=== PATIENT | male | born 1950 | race Two or more races ===

== ENCOUNTER → 2024-06-01 | Outpatient (CLI) | payer MEDICARE, MEDICAID, SELFPAY ==
[2024-06-01 10:21] LABS: Prostate Specific Antigen < 0.10 ng/mL (0-4.00)
== END | disposition home or self-care (01) ==
PROVIDERS: PCP Family Medicine; Referring Provider Urology; Visit Provider Urology
DX: C61 Malignant neoplasm of prostate (principal)
CPT/HCPCS: 36415; 84153

== ENCOUNTER → 2024-06-05 | Outpatient (BNVA) | payer MEDICARE, MEDICAID, SELFPAY | END | disposition home or self-care (01) | PROVIDERS: PCP Family Medicine; Referring Provider Family Medicine; Visit Provider Urology | DX: C61 Malignant neoplasm of prostate (principal); N32.81 Overactive bladder; Z92.3 Personal history of irradiation; E11.9 Type 2 diabetes mellitus without complications; I10 Essential (primary) hypertension; E78.00 Pure hypercholesterolemia, unspecified | CPT/HCPCS: 81003; 99212; G0463 ==

== ENCOUNTER → 2024-07-10 | Outpatient (CLI) | payer MEDICARE, MEDICAID, SELFPAY ==
[2024-07-10 10:13] LABS: Basophils % (Auto) 1 % (0-2.5); Eosinophils # (Auto) 0.3 Thou/mm3 (0.0-0.5); Eosinophils % (Auto) 4 % (0-10); Hematocrit 40.2 % (41.0-53.0); Hemoglobin 13.6 g/dL (13.5-16.0); Immature Granulocytes % (Auto) 0 % (0-0); Immature Granulocytes Auto 0.02 Thou/mm3 (0.00-0.00); Lymphocytes # (Auto) 1.6 Thou/mm3 (1.0-4.8); Lymphocytes % (Auto) 21 % (10-50); Mean Corpuscular HGB Conc 33.8 g/dl (31.0-37.0); Mean Corpuscular Hemoglobin 28.9 pg (25.0-35.0); Mean Corpuscular Volume 85 fL (80-100); Monocytes # (Auto) 0.5 Thou/mm3 (0.0-0.8); Monocytes % (Auto) 7 % (0-12); Neutrophils % (Auto) 68 % (37-80); Nucleated Red Blood Cell % 0 /100 WBC (0); Platelet Count 347 Thou/mm3 (140-440); RDW Standard Deviation 37.9 fL (35.1-43.9); Red Blood Count 4.71 Miln/mm3 (4.50-5.90); White Blood Count 7.4 Thou/mm3 (3.8-10.6)
[2024-07-10 10:24] LABS: Prostate Specific Antigen < 0.10 ng/mL (0-4.00)
[2024-07-10 10:40] LABS: Alanine Aminotransferase 13 U/L (10-49); Albumin, Serum 4.4 gm/dL (3.4-4.8); Albumin/Globulin Ratio 1.6 (1.2-2.2); Alkaline Phosphatase 163 U/L (46-116); Anion Gap 6 (7-16); Aspartate Amino Transferase < 8 U/L (0-34); BUN/Creatinine Ratio 16 Ratio (12-20); Bilirubin,Total 0.5 mg/dL (0.3-1.2); Blood Urea Nitrogen 13 mg/dL (9-23); Calcium 9.3 mg/dL (8.3-10.6); Calcium (Corrected) 9.3 mg/dL (8.5-10.1); Chloride 98 mMol/L (98-107); Creatinine (Component) 0.8 mg/dL (0.6-1.3); Globulin 2.7 gm/dL (2.3-3.5); Glucose 353 mg/dL (74-106); Osmolality,Calculated 282 (275-295); Potassium 4.3 mMol/L (3.4-5.1); Sodium 134 mMol/L (136-145); Total Protein 7.1 gm/dL (5.7-8.2); eGFR > 60 See Note
== END | disposition home or self-care (01) ==
LOC: SCTO 08:45
PROVIDERS: PCP Family Medicine; Referring Provider Internal Medicine Hematology & Oncology; Visit Provider Internal Medicine Hematology & Oncology
DX: C61 Malignant neoplasm of prostate (principal)
CPT/HCPCS: 36415; 80053; 84153; 85025

== ENCOUNTER 2024-07-12 15:24 | Outpatient (RCR) | payer MEDICARE, MEDICAID, SELFPAY ==
--- NOTE | 2024-07-22 22:50 | CTCFLWUP_ITS ---
Patient: CHETAN VAUGHN V. : 1950 Page 4 of 5 FOLLOW UP NOTE DATE OF SERVICE: 07/12/2024 NAME: CHETAN VAUGHN V. ACCOUNT: [id number] : 1950 AGE: 73 INTERVAL HISTORY: Patient is complaining that he feels sexual dysfunction and would like to stop his Lupron. Patient otherwise is very active. Patient takes his calcium and vitamin D. 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 Mr. Vaughn was treated with robotic radical prostatectomy. 1. Adenocarcinoma of the prostate gland, acinar type. 2. Histological grade group and [place] score grade group is 4. Bhupendra score is 4+4=8. Percentage of the pattern 4 is 80%. Percentage of the pattern 5 is 0. Intraductal carcinoma, not identified. 3. Tumor quantification 25%. 4. Extraprostatic extension present, nonfocal. 5. Location of the extraprostatic extension, right anterior, left lateral, left posterior. 6. Urinary bladder neck invasion present. 7. Seminal vesicle invasion present, left. 8. Treatment effect, no known presurgical therapy. 9. Prostate summary, lymphovascular invasion present. 10. Perineural invasion present. 11. Margin involved by invasive carcinoma limited less than 3 mm. Location of positive margin, right posterior margin. Positivity in the area of extraprostatic extension present, Bhupendra pattern of positive margin is 4 lymph nodes. Number of lymph nodes involved 2. Site pelvic, periprostatic. Size of the metastatic deposit is 0.4 cm. Pathological stage is pT3b N1 Mx. Additional finding, carcinoma involves the left vas. I did his PSA on 05/30/2020, is 12.35. He is continent of urine. 07/24/2020: Bone scan done 07/16/2020 - 09/10/2020: Due to high risk nature of his prostate cancer Mr. Vaughn was treated with radi ation along with Lupron injections. Mr. Vaughn received 6840 cGy of radiation therapy prostate bed. 08/04/2020?02/03/2022: Mr. Vaughn was treated with leuprolide. PSA trend: 06/2021: Less than 0.10. 03/11/2021: Less than 0.10. 08/12/2022: Less than 0.10. 02/21/2023: 4.69. 03/14/2023: PSA 6.14. 03/10/2023: Xtandi prescribed 03/17/2023: Patient received Lupron 22.5 mg IM 05/17/2023: 3.45. 03/01/2023: CT scan of the abdomen and pelvis with IV contrast 03/03/2023:Bone scan- 03/07/2023: X-rays of the lumbar spine no evidence of metastatic disease 03/07/2023: X-rays of the thoracic spine were negative for osteoblastic metastatic disease. 06/14/2023: PSA less than 0.10 07/11/2023: Xtandi discontinued due to extreme weakness and fatigue. 08/17/2023: PSA less than 0.00. 09/13/2023: PSA less than 0.10. 12/12/2023: PSA is less than 0.10. OTHER MEDICAL HISTORY/CONDITIONS: Prostate cancer HTN Diabetes Asthma Rheumatoid arthritis Hyperlipidemia Robotic Radiacl Prostatectomy - 07/31/2019 [facility] [[email or web address] Lumbar rodding - 2016 FAMILY HISTORY: Patient?denies?family?cancer?history. 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 Tobacco?Use:?Denies ETOH?Use:?Denies Drug?Note:?Denies Social?History?Note:?Lives?with?dtr MEDICATIONS: 1. losartan - 100 mg Daily 2. metformin - 1,000 mg Twice a Day 3. NovoLOG Mix 70-30 U-100 Insuln - 100 unit/mL (70-30) As directed Medications Last Reconciled by Bri Osborn MA on 07/12/2024 ALLERGIES: PENICILLAMINE REVIEW OF SYSTEMS: A complete 14-point review of systems was performed and is negative except as noted in interval histo ry. PHYSICAL EXAMINATION: VITAL SIGNS: PAIN: 0 - No pain ECOG Performance Status: 0 - Asymptomatic and fully active GENERAL APPEARANCE: Appears well, in no apparent distress, appropriately interactive. HEENT: Normocephalic, no temporal wasting, normal conjunctiva, no scleral icterus, normal hearing, li ps without lesions, neck normal range of motion. CARDIOVASCULAR: Not assessed. PULMONARY: Normal respiratory effort, no respiratory distress or use of accessory muscles, speaking i n full sentences, no tachypnea. EXTREMITIES: No pedal edema or cyanosis. SKIN: Normal skin appearance. NEUROLOGIC: Alert and oriented x4. PSHYCHIATRIC: Appropriate affect, mood normal, behavior normal, intact thought and speech. LABORATORY DATA: I have personally reviewed and interpreted each of the patient?s relevant lab tests, abnormal finding s are below: Date 07/10/24 ??WHITE?BLOOD?COUNT?(Thou/mm3) 7.4 ??RED?BLOOD?COUNT?(Miln/mm3) 4.71 ??HEMOGLOBIN?(gm/dl) 13.6 ??HEMATOCRIT?(%) 40.2?L ??PLATELET?COUNT?(Thou/mm3) 347 ??NEUTROPHILS?%,?AUTO?(%) 68 ??LYMPH?%,?AUTO?(%) 21 ??NEUTROPHILS,?AUTO?(Thou/mm3) 5.0 ASSESSMENT/PLAN: 1. 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 The patient denies any new complaints. Has reasonably good energy levels. Ambulating with the he lp of a cane. 3. Previously he was unable to tolerate Xtandi which was discontinued. 4. PSA less than 0.10. 5. CT scan of the abdomen and pelvis with IV contrast negative for metastatic disease. 6. Bone scan (03/03/2023) is also negative for metastatic disease.. 7. Rheumatoid arthritis ORDERS: Stop Lupron CBC CMP PSA every 3 to 4 months RETURN TO CLINIC: RTC in 3 to 4 months BILLING AND COMPLIANCE: I reviewed external records from providers outside my specialty as summarized above. I spent a total of 50 minutes on this patient?s care on the day of their visit excluding time spent related to any bi lled procedures. This time includes time spent with the patient as well as time spent documenting in the medical record, reviewing patients records and tests, obtaining history, placing orders, communi cating with other healthcare professionals, counseling the patient, family or caregiver, and/or care coordination for the diagnoses above. Electronically Signed by: Edison Reyez MD T: 10:48 PM CC: PCP: Kevin Robison Referring: Kevin Robison This document was completed utilizing speech recognition software. Grammatical errors, random word in sertions, pronoun errors, and incomplete sentences are an occasional consequence of this system due t o software limitations, ambient noise, and hardware issues. Any formal questions or concerns about th e content, text or information contained within the body of this dictation should be directly address ed to the provider for clarification.
== END 2024-07-24 23:59 | disposition home or self-care (01) ==
LOC: SCTC 15:24
PROVIDERS: PCP Family Medicine; Referring Provider Family Medicine; Visit Provider Internal Medicine Hematology & Oncology
DX: C61 Malignant neoplasm of prostate (principal); M06.9 Rheumatoid arthritis, unspecified
CPT/HCPCS: 99212; G0463

== ENCOUNTER 2024-09-26 15:41 | Emergency (ER) | payer MEDICARE, MEDICAID, SELFPAY ==
[2024-09-26 16:28] VITALS: BP 134/76; PULSE 89; RESP 18; TEMP 36.6; O2SAT 97; BMI 22.0
--- NOTE | 2024-09-26 16:28 | XR_ITS ---
Examination: CT brain head without contrast. 2-D sagittal coronal reconstructions Date and time of exam:September 26, 2024 1818 hours Comparison August 21, 2023 INDICATIONS: Onset dizziness today CTDI: vol (mGy):46.2 DLP: (mGycm):915 Technique: Multiple CT axial sections of the brain have been obtained, 5 mm slice thickness. Contrast has not been administered. 2-D sagittal, coronal reconstructions have been obtained Low dose protocols were performed. One or more of the following dose reduction techniques were used; automated exposure control, adjustment of the mA and/or KV according to patient size, use of iterative reconstruction technique. Findings: No significant ventricular enlargement. Intra-axial or extra-axial hemorrhage density is not seen. No mass effect or midline shift Basal cisterns are not remarkable. Fourth ventricle is midline. Cranial vault intact. Impression: Negative for acute hemorrhage, mass effect or midline shift Significant bilateral chronic mastoiditis Bilateral acute mastoiditis Acute right maxillary sinusitis Significant chronic ethmoid sinusitis Advise clinical correlation and follow-up accordingly
--- NOTE | 2024-09-26 16:28 | EKG_ITS ---
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
--- NOTE | 2024-09-26 16:29 | PD.EDRME ---
Rapid Medical Screening Exam RME Arrival date/time: 09/26/24 15:41 74-year-old male with a history of hypertension, type 2 diabetes, hyperlipidemia presents to the emergency room with a chief complaint of facial twitching, dizziness, lightheadedness and a blood sugar reading of 570 at home. Patient states the facial twitching began today and it is involuntary. I have greeted and performed a focused initial assessment of this patient. A comprehensive ED assessment and evaluation of the patient, analysis of all test results, and completion of the medical decision making process will be conducted by additional ED providers. Chief Complaint: Recheck/Abnormal Lab/Rx Time Seen by Provider: 09/26/24 16:21 Vital signs reviewed by provider: Yes
[2024-09-26 17:27] LABS: Collection Type, Urine Clean Catch; WBC,Urine 0 /hpf (0-5)
[2024-09-26 17:31] LABS: Basophils % (Auto) 0 % (0-2.5); Eosinophils # (Auto) 0.3 Thou/mm3 (0.0-0.5); Eosinophils % (Auto) 3 % (0-10); Hematocrit 39.3 % (41.0-53.0); Hemoglobin 13.3 g/dL (13.5-16.0); Immature Granulocytes % (Auto) 0 % (0-0); Immature Granulocytes Auto 0.03 Thou/mm3 (0.00-0.00); Lymphocytes # (Auto) 1.7 Thou/mm3 (1.0-4.8); Lymphocytes % (Auto) 15 % (10-50); Mean Corpuscular HGB Conc 33.8 g/dl (31.0-37.0); Mean Corpuscular Hemoglobin 28.9 pg (25.0-35.0); Mean Corpuscular Volume 85 fL (80-100); Monocytes # (Auto) 0.7 Thou/mm3 (0.0-0.8); Monocytes % (Auto) 6 % (0-12); Neutrophils # (Auto) 8.7 Thou/mm3 (1.8-7.7); Neutrophils % (Auto) 76 % (37-80); Nucleated Red Blood Cell % 0 /100 WBC (0); Platelet Count 347 Thou/mm3 (140-440); RDW Standard Deviation 37.4 fL (35.1-43.9); Red Blood Count 4.61 Miln/mm3 (4.50-5.90); White Blood Count 11.5 Thou/mm3 (3.8-10.6)
[2024-09-26 17:33] LABS: Beta Hydroxybutyrate 0.2 mmol/L (<0.6)
[2024-09-26 17:43] LABS: Bilirubin,Urine Negative (Negative); Blood,Urine Negative (Negative); Clarity,Urine Clear (Clear/Hazy); Color,Urine Lt-Yellow (Lt Yel-Yel); Glucose, Urine 4+ (Negative); Ketones,Urine Negative (Negative); Leukocyte Esterase,Urine Negative (Negative); Nitrite,Urine Negative (Negative); PH,Urine 6.5 (5.0-7.0); Protein,Urine Negative (Neg - Trace); RBC,Urine 6 /hpf (0-3); Squamous Epithelial Cell,Urine < 1 /hpf (0-5); Urobilinogen,Urine Negative mg/dL (0.0-1.0)
[2024-09-26 18:03] LABS: B-Type Natriuretic Peptide 27 pg/mL (0-100)
[2024-09-26 18:20] LABS: Alanine Aminotransferase 14 U/L (10-49); Albumin, Serum 4.1 gm/dL (3.4-4.8); Albumin/Globulin Ratio 1.3 (1.2-2.2); Alkaline Phosphatase 181 U/L (46-116); Anion Gap 8 (7-16); Aspartate Amino Transferase 16 U/L (0-34); BUN/Creatinine Ratio 17 Ratio (12-20); Bilirubin,Total 0.3 mg/dL (0.3-1.2); Blood Urea Nitrogen 17 mg/dL (9-23); Calcium 9.5 mg/dL (8.3-10.6); Calcium (Corrected) 9.5 mg/dL (8.5-10.1); Carbon Dioxide 28.7 mMol/L (20.0-31.0); Chloride 98 mMol/L (98-107); Estimated Creatinine Clearance 60.3 mL/min (>60); Globulin 3.1 gm/dL (2.3-3.5); Osmolality,Calculated 295 (275-295); Potassium 4.5 mMol/L (3.4-5.1); Sodium 135 mMol/L (136-145); Total Protein 7.2 gm/dL (5.7-8.2); Troponin I < 0.002 ng/mL (0.0-0.045); eGFR > 60 See Note
[2024-09-26 18:24] LABS: Glucose 537 mg/dL (74-106)
--- NOTE | 2024-09-26 20:11 | PD.EDHA ---
ED Headache RME/HPI General Chief Complaint: Recheck/Abnormal Lab/Rx Stated Complaint: BLOOD SUGAR OVER 500 AT HOME Time Seen by Provider: 09/26/24 16:21 Source: patient Arrival date/time: 09/26/24 15:41 74-year-old male past medical history of diabetes, hypertension, and hyperlipidemia presents to the emergency department complaining of headache and sinus pressure that prompted him to check his blood sugar. Patient reports blood sugar was greater than 500 so he decided to go to the emergency department for evaluation. Patient denies any dizziness, vision changes, fever, sore throat, earache, or any other associated symptom. Mode of arrival: ambulatory Limitations: no limitations RME / HPI RME / HPI Narrative: 09/26/24 15:41 74-year-old male with a history of hypertension, type 2 diabetes, hyperlipidemia presents to the emergency room with a chief complaint of facial twitching, dizziness, lightheadedness and a blood sugar reading of 570 at home. Patient states the facial twitching began today and it is involuntary. I have greeted and performed a focused initial assessment of this patient. A comprehensive ED assessment and evaluation of the patient, analysis of all test results, and completion of the medical decision making process will be conducted by additional ED providers. Related Data Home Medications ?Medication ?Instructions ?Recorded ?Confirmed albuterol sulfate 90 mcg/actuation 2 puff inhalation Q4HR PRN Wheezing 02/22/20 06/05/24 aerosol inhaler amlodipine 5 mg tablet 5 mg PO DAILY 12/27/22 06/05/24 loratadine 10 mg tablet 10 mg PO DAILY 12/27/22 06/05/24 losartan 100 1 tab PO DAILY 12/27/22 06/05/24 mg-hydrochlorothiazide 25 mg tablet lovastatin 20 mg tablet 20 mg PO DAILY 12/27/22 06/05/24 metformin 1,000 mg tablet 1,000 mg PO BID 12/27/22 06/05/24 mirabegron 50 mg tablet,extended 50 mg PO DAILY 12/27/22 06/05/24 release 24 hr (Myrbetriq) insulin glargine 100 unit/mL (3 25 unit subcut HS 03/22/23 06/05/24 mL) subcutaneous pen (Lantus Solostar U-100 Insulin) semaglutide 0.25 mg or 0.5 mg (2 1 mg subcut QWEEK 03/22/23 06/05/24 mg/3 mL) subcutaneous pen injector (Ozempic) Previous Rx's ?Medication ?Instructions ?Recorded ondansetron 4 mg disintegrating 4 mg PO Q8H #14 tabs 02/15/23 tablet acetaminophen 500 mg capsule 500 mg PO Q6H PRN pain #30 caps 09/26/24 cefuroxime axetil 500 mg tablet 500 mg PO BID 14 days #28 tabs 09/26/24 Allergies Allergy/AdvReac Type Severity Reaction Status Date / Time Penicillins Allergy Severe Rash Verified 09/26/24 15:46 ED Exam General Limitations: Present no limitations Course Orders Category Date Time Status Blood glucose [Bedside Blood Glucose] NOW Care 09/26/24 16:28 Active EKG (ED ONLY) *Do not use* NOW Care 09/26/24 16:28 Completed Insert IV NOW Care 09/26/24 18:[address] head/brain wo con Stat Exams 09/26/24 16:28 Completed EKG (ED Only) Stat Exams 09/26/24 16:28 Draft B-Type Natriuretic Peptide Stat Lab 09/26/24 17:06 Completed Beta Hydroxybutyrate Stat Lab 09/26/24 17:06 Completed CBC Stat Lab 09/26/24 17:06 Completed Comprehensive Metabolic Panel Stat Lab 09/26/24 17:06 Completed Magnesium Stat Lab 09/26/24 17:06 Completed Troponin I Stat Lab 09/26/24 17:06 Completed Urinalysis Stat Lab 09/26/24 17:15 Completed Sodium Chloride 0.9% 500 ml [Ns] 500 ml Med 09/26/24 20:11 Active IV 999 mls/hr Vital Signs Vital signs: Vital Signs Temperature 98 F 09/26/24 16:28 Pulse Rate 89 09/26/24 16:28 Respiratory Rate 18 09/26/24 16:28 Blood Pressure 134/76 H 09/26/24 16:28 Pulse Oximetry (%) 97 09/26/24 16:28 Oxygen Delivery Method Room Air 09/26/24 16:28 Headache Medications / Prescriptions Medication administrations:: Medication Administration History Sodium Chloride (Ns) 500 mls @ 999 mls/hr IV .Q31M ONE Stop: 09/26/24 20:41 Last Admin: 09/26/24 20:13 Dose: 999 mls/hr Documented By: KRISTINE Discharge Plan Plan Patient Disposition: HOME (Self Care) Disposition Comment: Stable Prescriptions/Referrals Prescriptions/Med Rec: New cefuroxime axetil 500 mg tablet 500 mg PO BID 14 Days Qty: 28 0RF acetaminophen 500 mg capsule 500 mg PO Q6H PRN (Reason: pain) Qty: 30 0RF No Action albuterol sulfate 90 mcg/actuation HFA aerosol inhaler 2 puff IH Q4HR PRN (Reason: Wheezing) amlodipine 5 mg tablet 5 mg PO DAILY losartan-hydrochlorothiazide 100-25 mg tablet 1 tab PO DAILY Patient Comments: TAKE 1 TABLET BY MOUTH EVERY DAY FOR 45 DAYS lovastatin 20 mg tablet 20 mg PO DAILY Patient Comments: TAKE 1 TABLET BY MOUTH EVERY DAY WITH THE EVENING MEAL loratadine 10 mg Tablet 10 mg PO DAILY Myrbetriq 50 mg tablet extended release 24 hr 50 mg PO DAILY metformin 1,000 mg tablet 1,000 mg PO BID Patient Comments: TAKE 1 TABLET BY MOUTH TWICE DAILY WITH MEALS Ozempic 0.25 mg or 0.5 mg (2 mg/3 mL) pen injector 1 mg SUBCUT QWEEK Patient Comments: INJECT 0.5 MG UNDER THE SKIN WEEKLY insulin glargine [Lantus Solostar U-100 Insulin] 100 unit/mL (3 mL) insulin pen 25 unit SUBCUT HS ondansetron 4 mg tablet,disintegrating 4 mg PO Q8H Qty: 14 0RF Referrals: No Primary/Family,Physician [Primary Care Provider] - In 1 week Problem List Clinical Impression: Sinusitis Patient/Caregiver Discharge Instructions Discharge Activity: activity as tolerated Education Materials: ED Sinusitis (Antibiotic Treatment) Additional Instructions: Drink plenty of fluid and get plenty of rest. Take antibiotics as prescribed. Take Tylenol as needed for pain. Continue taking diabetes medication as prescribed. Follow-up with primary care provider in 2 to 3 days. Return to emergency department for any worsening symptoms or as needed. Print Language: Polish Stand Alone Forms: [facility] Award Info., Patient Portal Info Letter PA/CONSTRUCTION RECRUITER Supervising Physician PA/CONSTRUCTION RECRUITER Supervising Physician: Dr. Carrero
[2024-09-26] MEDS: SODIUM CHLORIDE 0.9% 500 ML 500 ML 999 ML IV (20:13)
[2024-09-26 20:14] VITALS: BP 131/93; PULSE 88; RESP 16; TEMP 36.9; O2SAT 99
== END 2024-09-26 20:48 | disposition home or self-care (01) ==
PROVIDERS: Nurse Practitioner Family; Emergency Provider Emergency Medicine
DX: J32.9 Chronic sinusitis, unspecified (principal); I10 Essential (primary) hypertension; E11.9 Type 2 diabetes mellitus without complications; E78.5 Hyperlipidemia, unspecified
CPT/HCPCS: 36415; 70450; 80053; 81001; 82010; 83735; 83880; 84484; 85025; 93005; 99284; J7040

== ENCOUNTER → 2024-11-05 | Outpatient (CLI) | payer MEDICARE, MEDICAID, SELFPAY ==
[2024-11-05 14:23] LABS: Basophils % (Auto) 1 % (0-2.5); Eosinophils # (Auto) 0.1 Thou/mm3 (0.0-0.5); Eosinophils % (Auto) 2 % (0-10); Hematocrit 38.6 % (41.0-53.0); Hemoglobin 12.8 g/dL (13.5-16.0); Immature Granulocytes % (Auto) 0 % (0-0); Immature Granulocytes Auto 0.02 Thou/mm3 (0.00-0.00); Lymphocytes # (Auto) 1.3 Thou/mm3 (1.0-4.8); Lymphocytes % (Auto) 22 % (10-50); Mean Corpuscular HGB Conc 33.2 g/dl (31.0-37.0); Mean Corpuscular Hemoglobin 29.2 pg (25.0-35.0); Mean Corpuscular Volume 88 fL (80-100); Monocytes # (Auto) 0.6 Thou/mm3 (0.0-0.8); Monocytes % (Auto) 10 % (0-12); Neutrophils # (Auto) 3.8 Thou/mm3 (1.8-7.7); Neutrophils % (Auto) 65 % (37-80); Nucleated Red Blood Cell % 0 /100 WBC (0); Platelet Count 311 Thou/mm3 (140-440); RDW Standard Deviation 40.4 fL (35.1-43.9); Red Blood Count 4.38 Miln/mm3 (4.50-5.90); White Blood Count 5.8 Thou/mm3 (3.8-10.6)
[2024-11-05 14:55] LABS: Alanine Aminotransferase 15 U/L (10-49); Albumin, Serum 3.7 gm/dL (3.4-4.8); Albumin/Globulin Ratio 1.4 (1.2-2.2); Alkaline Phosphatase 155 U/L (46-116); Anion Gap 6 (7-16); Aspartate Amino Transferase 15 U/L (0-34); BUN/Creatinine Ratio 23 Ratio (12-20); Bilirubin,Total 0.4 mg/dL (0.3-1.2); Blood Urea Nitrogen 21 mg/dL (9-23); Calcium 8.9 mg/dL (8.3-10.6); Calcium (Corrected) 9.1 mg/dL (8.5-10.1); Chloride 97 mMol/L (98-107); Creatinine (Component) 0.9 mg/dL (0.6-1.3); Globulin 2.7 gm/dL (2.3-3.5); Osmolality,Calculated 292 (275-295); Potassium 4.4 mMol/L (3.4-5.1); Sodium 132 mMol/L (136-145); Total Protein 6.4 gm/dL (5.7-8.2); eGFR > 60 See Note
[2024-11-05 14:58] LABS: Glucose 549 mg/dL (74-106)
[2024-11-05 15:00] LABS: Prostate Specific Antigen < 0.10 ng/mL (0-4.00)
== END | disposition home or self-care (01) ==
LOC: SCTC 13:39 → SCTO 11-09 09:32
PROVIDERS: Referring Provider Internal Medicine Hematology & Oncology; Visit Provider Internal Medicine Hematology & Oncology
DX: C61 Malignant neoplasm of prostate (principal)
CPT/HCPCS: 80053; 84153; 85025

== ENCOUNTER → 2024-12-03 | Outpatient (BNVA) | payer MEDICARE, MEDICAID, SELFPAY | END | disposition home or self-care (01) | PROVIDERS: PCP Family Medicine; Referring Provider Family Medicine; Visit Provider Urology | DX: C61 Malignant neoplasm of prostate (principal); N32.81 Overactive bladder; Z92.3 Personal history of irradiation; E11.9 Type 2 diabetes mellitus without complications; I10 Essential (primary) hypertension; E78.00 Pure hypercholesterolemia, unspecified | CPT/HCPCS: 81003; 99212; G0463 ==

== ENCOUNTER 2024-12-26 10:08 | Outpatient (RCR) | payer MEDICARE, MEDICAID, SELFPAY ==
--- NOTE | 2024-12-26 11:37 | CTCFLWUP_ITS ---
Patient: CHETAN VAUGHN V. : 1950 Page 2 of 2 FOLLOW UP NOTE DATE OF SERVICE: 12/26/2024 NAME: CHETAN VAUGHN V. ACCOUNT: [id number] : 1950 AGE: 74 INTERVAL HISTORY: Patient and daughter are here for visit. Patient is very hard of hearing and daughter is natural resource officer for patient. 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 As per daughter patient have uncontrolled diabetes. Patient have multiple PCPs changed. 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 Patient continues to lose weight. 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 Mr. Vaughn was treated with robotic radical prostatectomy. 1. Adenocarcinoma of the prostate gland, acinar type. 2. Histological grade group and Bhupendra score grade group is 4. Bhupendra score is 4+4=8. Percentage of the pattern 4 is 80%. Percentage of the pattern 5 is 0. Intraductal carcinoma, not identified. 3. Tumor quantification 25%. 4. Extraprostatic extension present, nonfocal. 5. Location of the extraprostatic extension, right anterior, left lateral, left posterior. 6. Urinary bladder neck invasion present. 7. Seminal vesicle invasion present, left. 8. Treatment effect, no known presurgical therapy. 9. Prostate summary, lymphovascular invasion present. 10. Perineural invasion present. 11. Margin involved by invasive carcinoma limited less than 3 mm. Location of positive margin, right posterior margin. Positivity in the area of extraprostatic extension present, Bhupendra pattern of positive margin is 4 lymph nodes. Number of lymph nodes involved 2. Site pelvic, periprostatic. Size of the metastatic deposit is 0.4 cm. Pathological stage is pT3b N1 Mx. Additional finding, carcinoma involves the left vas. I did his PSA on 05/30/2020, is 12.35. He is continent of urine. 07/24/2020: Bone scan done 07/16/2020 - 09/10/2020: Due to high risk nature of his prostate cancer Mr. Vaughn was treated with radiation along with Lupron injections. Mr. Vaughn received 6840 cGy of radiation therapy prostate bed. 08/04/2020?02/03/2022: Mr. Vaughn was treated with leuprolide. PSA trend: 06/2021: Less than 0.10. 03/11/2021: Less than 0.10. 08/12/2022: Less than 0.10. 02/21/2023: 4.69. 03/14/2023: PSA 6.14. 03/10/2023: Xtandi prescribed 03/17/2023: Patient received Lupron 22.5 mg IM 05/17/2023: 3.45. 03/01/2023: CT scan of the abdomen and pelvis with IV contrast 03/03/2023:Bone scan- 03/07/2023: X-rays of the lumbar spine no evidence of metastatic disease 03/07/2023: X-rays of the thoracic spine were negative for osteoblastic metastatic disease. 06/14/2023: PSA less than 0.10 07/11/2023: Xtandi discontinued due to extreme weakness and fatigue. 08/17/2023: PSA less than 0.00. 09/13/2023: PSA less than 0.10. 12/12/2023: PSA is less than 0.10. OTHER MEDICAL HISTORY/CONDITIONS: Prostate cancer HTN Diabetes Asthma Rheumatoid arthritis Hyperlipidemia Robotic Radiacl Prostatectomy - 07/31/2019 [facility] Lumbar rodding - 2015 FAMILY HISTORY: Patient?denies?family?cancer?history. 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 Tobacco?Use:?Denies ETOH?Use:?Denies Drug?Note:?Denies Social?History?Note:?Lives?with?dtr MEDICATIONS: 1. Calcium 600 + D(3) - 600 mg-10 mcg (400 unit) 1 tab take 1 tab po twice a day 2. losartan - 100 mg Daily 3. metformin - 1,000 mg Twice a Day 4. NovoLOG Mix 70-30 U-100 Insuln - 100 unit/mL (70-30) As directed Medications Last Reconciled by Kate Garcia MA on 12/26/2024 ALLERGIES: PENICILLAMINE REVIEW OF SYSTEMS: A complete 14-point review of systems was performed and is negative except as noted in interval history. PHYSICAL EXAMINATION: VITAL SIGNS: Temperature?96.4, B/P?118/73, Oxygen?Saturation?96% Weight?134?lbs ECOG Performance Status: 1 - Symptomatic; ambulatory; restricted in strenuous activity GENERAL APPEARANCE: Appears well, in no apparent distress, appropriately interactive. HEENT: Normocephalic, no temporal wasting, normal conjunctiva, no scleral icterus, normal hearing, lips without lesions, neck normal range of motion. CARDIOVASCULAR: Not assessed. PULMONARY: Normal respiratory effort, no respiratory distress or use of accessory muscles, speaking in full sentences, no tachypnea. EXTREMITIES: No pedal edema or cyanosis. SKIN: Normal skin appearance. NEUROLOGIC: Alert and oriented x4. PSHYCHIATRIC: Appropriate affect, mood normal, behavior normal, intact thought and speech. LABORATORY DATA: I have personally reviewed and interpreted each of the patient?s relevant lab tests, abnormal findings are below: Date 09/26/24 11/05/24 ??WHITE?BLOOD?COUNT?(Thou/mm3) 11.5?H 5.8 ??RED?BLOOD?COUNT?(Miln/mm3) 4.61 4.38?L ??HEMOGLOBIN?(gm/dl) 13.3?L 12.8?L ??HEMATOCRIT?(%) 39.3?L 38.6?L ??PLATELET?COUNT?(Thou/mm3) 347 311 ??NEUTROPHILS?%,?AUTO?(%) 76 65 ??LYMPH?%,?AUTO?(%) 15 22 ??NEUTROPHILS,?AUTO?(Thou/mm3) 8.7?H 3.8 ??GLUCOSE,RANDOM?(mg/dL) 537?HH 549?HH ??BLOOD?UREA?NITROGEN?(mg/dL) 17 21 ??CREATININE?(mg/dL) 1.00 0.90 ??SODIUM?(mmol/L) 135?L 132?L ??POTASSIUM?(mmol/L) 4.5 4.4 ??CHLORIDE?(mmol/L) 98 97?L ??CrCl?(CandG)?(ml/min) 61.87 68.74 ??AST/SGOT?(Unit/L) 16 15 ??ALT/SGPT?(Unit/L) 14 15 ??ALKALINE?PHOSPHATASE?(Unit/L) 181?H 155?H ??BILIRUBIN,?TOTAL?(mg/dL) 0.3 0.4 ??PROTEIN?TOTAL?(gm/dl) 7.2 6.4 ??ALBUMIN,?SERUM?(gm/dl) 4.1 3.7 ??GLOBULIN?(gm/dl) 3.1 2.7 ??ALBUMIN/GLOBULIN?RATIO 1.3 1.4 ??CALCIUM,?SERUM?(mg/dL) 9.5 8.9 ??CALCIUM?SERUM?(CORRECTED)?(mg/dL) 9.5 9.1 ASSESSMENT/PLAN: 1. 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 Has reasonably good energy levels. Ambulating with the help of a cane. Previously he was unable to tolerate Xtandi which was discontinued. PSA less than 0.10. CT scan of the abdomen and pelvis with IV contrast negative for metastatic disease. Bone scan (03/03/2023) is also negative for metastatic disease.. Advised to take calcium and vitamin D3 Patient's weight loss may or may not be related to prostate cancer as PSA less than 0.1. Will do PET CT scan to evaluate for underlying malignancy Uncontrolled diabetes Blood sugars persistently more than 500 Will refer to endocrinology Failure to thrive Patient is persistently losing weight Will wait for the PET CT scan results to see if patient has another malignancy Weight loss can also be part of the uncontrolled diabetes RTC after the imaging and endocrine follow-up Osteoporosis Will get bone density Advised to take calcium and vitamin D3 daily ORDERS: Order # Description [id number] PSA + [id number] PSA + Comprehensive Metabolic Panel - 12 + CBC with Auto Diff [id number] MD Follow Up 6 Month [id number] DXA L-Spine and Hip [id number] Initial PET/CT of Skull to Mid-Thigh [id number] MD Follow Up 3 Months RETURN TO CLINIC: BILLING AND COMPLIANCE: I reviewed external records from providers outside my specialty as summarized above. I spent a total of 50 minutes on this patient?s care on the day of their visit excluding time spent related to any billed procedures. This time includes time spent with the patient as well as time spent documenting in the medical record, reviewing patients records and tests, obtaining history, placing orders, communicating with other healthcare professionals, counseling the patient, family or caregiver, and/or care coordination for the diagnoses above. Electronically Signed by: Edison Reyez MD T: 11:34 AM CC: PCP: Kevin Robison Referring: Kevin Robison This document was completed utilizing speech recognition software. Grammatical errors, random word insertions, pronoun errors, and incomplete sentences are an occasional consequence of this system due to software limitations, ambient noise, and hardware issues. Any formal questions or concerns about the content, text or information contained within the body of this dictation should be directly addressed to the provider for clarification.
== END 2025-01-21 23:59 | disposition home or self-care (01) ==
LOC: SCTC 10:08
PROVIDERS: PCP Family Medicine; Referring Provider Family Medicine; Visit Provider Internal Medicine Hematology & Oncology
DX: C61 Malignant neoplasm of prostate (principal); Z19.1 Hormone sensitive malignancy status; E11.65 Type 2 diabetes mellitus with hyperglycemia; R62.7 Adult failure to thrive; Z68.21 Body mass index [BMI] 21.0-21.9, adult; M81.0 Age-related osteoporosis without current pathological fracture; Z92.3 Personal history of irradiation; Z79.84 Long term (current) use of oral hypoglycemic drugs
CPT/HCPCS: 99212; G0463

== ENCOUNTER → 2025-01-14 | Outpatient (CLI) | payer MEDICARE, MEDICAID, SELFPAY ==
--- NOTE | 2025-01-14 14:20 | XR_ITS ---
Examination: Bone densitometry Date and time of exam:January 14, 2025 1439 hours INDICATIONS: 74-year-old male with diagnosis age related osteoporosis Technique: Lumbar spine and hip total bone mineralization values of an calculated. Peak reference and age match control results have been displayed. Findings: Lumbar spine total bone mineralization is1.010 gm/cm2. This is 0.7 standard deviations below peak reference. This is 0.3 standard deviations above age-matched controls. Hip total bone mineralization is 0.728 gm/cm2 This is 2.5 standard deviations below peak reference. This is 1.7 standard deviations below age-matched controls Impression: There is normal mineralization based on lumbar spine measurements. There is osteoporosis based on hip measurements
== END | disposition home or self-care (01) ==
LOC: CDIM 14:04
PROVIDERS: PCP Internal Medicine; Referring Provider Internal Medicine Hematology & Oncology; Visit Provider Internal Medicine Hematology & Oncology
DX: M81.0 Age-related osteoporosis without current pathological fracture (principal); C61 Malignant neoplasm of prostate
CPT/HCPCS: 77080

== ENCOUNTER 2025-02-11 09:09 | Emergency (ER) | payer MEDICARE, MEDICAID, SELFPAY ==
[2025-02-11 09:29] VITALS: BP 149/87; PULSE 100; RESP 18; TEMP 36.8; O2SAT 96
--- NOTE | 2025-02-11 09:30 | XR_ITS ---
Examination: Thoracic spine 3 views Technique one AP lateral coned lateral upper dorsal spine 3 views Date and time: February 11, 2025 0945 hours INDICATIONS: Upper back pain today. FINDINGS: Thoracic dextroscoliosis 12 degrees Extensive demineralization of the anterior longitudinal ligament. No acute thoracic fracture Moderate diffuse thoracic degenerative disc disease IMPRESSION: Moderate diffuse thoracic degenerative disc disease
--- NOTE | 2025-02-11 09:30 | XR_ITS ---
Examination:Right hip AP, lateral, AP pelvis 3 views Technique: Hip AP lateral, AP pelvis, 3 views Exam date and time:February 11, 2025 0938 hours INDICATIONS: Onset right hip pain today FINDINGS: No acute right hip fracture or dislocation Moderate bilateral hip osteoarthritis Bones of the pelvis intact IMPRESSION: Moderate bilateral hip osteoarthritis.
--- NOTE | 2025-02-11 09:30 | XR_ITS ---
Examination: Lumbar spine, 5 views Technique: Lumbar spine AP, lateral, coned lateral lower lumbar spine, bilateral obliques 5 views Exam date and time: February 11, 2025 0938 hours INDICATIONS: Low back pain today. FINDINGS: Severe osteopenia. Lumbar stabilization about chronic compressed L2 vertebral body with satisfactory alignment No acute lumbar fracture Mild diffuse lumbar disc narrowing IMPRESSION: Mild diffuse lumbar degenerative disc disease with significant spinal stenosis
--- NOTE | 2025-02-11 09:31 | EDNOTE_ITS ---
ED Back Injury Pain RME/HPI General Chief Complaint: Back Pain/Injury Stated Complaint: BACK PAIN X 3 DAYS Time Seen by Provider: 02/11/25 09:34 Source: patient Arrival date/time: 02/11/25 09:09 74-year-old male with a history of hypertension, type 2 diabetes, hyperlipidemia presents to the emergency room with a chief complaint of lumbar and thoracic back pain x 3 days. Patient states he had a fall where he tripped and landed on his right side injuring his hip and back Mode of arrival: ambulatory Limitations: no limitations Related Data Home Medications ?Medication ?Instructions ?Recorded ?Confirmed albuterol sulfate 90 mcg/actuation 2 puff inhalation Q 4HR PRN Wheezing 02/22/20 12/03/24 aerosol inhaler amlodipine 5 mg tablet 5 mg PO DAILY 12/27/2212/03 loratadine 10 mg tablet 10 mg PO DAILY 12/27/2211/22 losartan 100 1 tab PO DAILY 12/27/2211/22 mg-hydrochlorothiazide 25 mg tablet lovastatin 20 mg tablet 20 mg PO DAILY 12/27/2211/22 metformin 1,000 mg tablet 1,000 mg PO BID 12/27/2207/18 mirabegron 50 mg tablet,extended 50 mg PO DAILY 12/03/24 release 24 hr (Myrbetriq) insulin glargine 100 unit/mL (3 25 unit subcut HS 02/2312/03/24 mL) subcutaneous pen (Lantus Solostar U-100 Insulin) semaglutide 0.25 mg or 0.5 mg (2 1 mg subcut QWEEK 12/03/24 mg/3 mL) subcutaneous pen injector (Ozempic) Previous Rx's ?Medication ?Instructions ?Recorded ondansetron 4 mg disintegrating 4 mg PO Q8H #14 tabs 0 02/15/23 tablet acetaminophen 500 mg capsule 500 mg PO Q6H PRN pain #3 0 caps 09/26/24 Allergies Allergy/AdvReac Type Severity Reaction Status Date / Time Penicillins Allergy Severe Rash Verified 02/11/25 09:15 Review of Systems Review of Systems Systems Reviewed: All systems reviewed, normal except as documented Constitutional Constitutional: Reports system reviewed and no additional complaints, except as documented, Denies fatigue, Denies fever(s), Denies headache(s) and Denies weakness Eyes Eyes: Reports system reviewed and no additional complaints, except as documented, Denies blurry vision and Denies change in vision ENT Ears, Nose, Mouth, and Throat: Reports system reviewed and no additional complaints, except as documented, Denies otalgia, Denies headache(s), Denies nasal congestion, Denies throat swelling and Denies vertigo Cardiovascular Cardiovascular: Reports system reviewed and no additional complaints, except as documented, Denies chest pain, Denies dyspnea and Denies dyspnea on exertion Respiratory Respiratory: Reports system reviewed and no additional complaints, except as documented, Denies chest congestion, Denies cough, Denies dyspnea, Denies dyspnea on exertion and Denies wheezing Gastrointestinal Gastrointestinal: Reports system reviewed and no additional complaints, except as documented, Denies abdominal pain, Denies cramping, Denies nausea and Denies vomiting Genitourinary Genitourinary: Reports system reviewed and no additional complaints, except as documented, Denies dysuria and Denies hematuria Musculoskeletal Musculoskeletal: Reports system reviewed and no additional complaints, except as documented, Reports arthralgias, Reports back pain, Reports joint swelling and Reports limited range of motion Integumentary/Breasts Skin/Breast: Reports system reviewed and no additional complaints, except as documented and Denies wounds Neurologic Neurologic: Reports system reviewed and no additional complaints, except as documented, Denies confusion, Denies headache(s), Denies lack of coordination, Denies vertigo and Denies weakness Psychiatric Psychiatric: Reports system reviewed and no additional complaints, except as documented, Denies anxiety, Denies confusion, Denies depression, Denies paranoia, Denies suicidal ideation and Denies tactile hallucinations Endocrine Endocrine: Reports system reviewed and no additional complaints, except as documented and Denies fatigue Hematologic/Lymphatic Hematologic/Lymphatic: Reports system reviewed and no additional complaints, except as documented and Denies lymphadenopathy Allergic/Immunologic Allergic/Immunologic: Reports system reviewed and no additional complaints, except as documented, Denies throat swelling, Denies urticaria and Denies wheezing ED Exam General Limitations: Present no limitations General appearance: Present alert and in no apparent distress Head Head exam: Present atraumatic, normocephalic and normal inspection Expanded Head Exam Head exam physical: Absent laceration, abrasion, contusion, hematoma, raccoon eyes, Yang's sign, tenderness of temporal artery, CSF rhinorrhea or CSF otorrhea Eye Eye exam: Present normal appearance, PERRL and EOMI ENT ENT exam: Present normal exam, normal oropharynx and mucous membranes moist Neck Neck exam: Present normal inspection, full ROM and trachea midline Chest Chest inspection: Present normal inspection and symmetric chest wall rise Respiratory Respiratory exam: Present normal lung sounds bilaterally Cardiovascular Cardiovascular exam: Present regular rate, normal rhythm and normal heart sounds Abdominal Exam Abdominal exam: Present soft and normal bowel sounds Extremities Exam Extremities exam: Present normal inspection and full ROM Expanded Lower Extremity Exam Hip/Pelvis exam: Present full ROM, tenderness and pelvis stable; Absent swelling or shortening Upper leg exam: Present normal inspection Knee exam: Present normal inspection Lower leg exam: Present normal inspection Ankle exam: Present normal inspection Foot/toe exam: Present normal inspection Back Exam Back exam: Present normal inspection, full ROM and tenderness Back 1 view image: 2 1. Lumbar thoracic back pain Neurological Exam Neurological exam: Present alert, oriented X3, CN II-XII intact and normal gait Expanded Neurological Exam Patient oriented to: Present person, place and time Speech: Present fluid speech Motor strength - LUE: 5/5 Motor strength - RUE: 5/5 Motor strength - LLE: 5/5 Motor strength - RLE: 5/5 Coma scale eye opening: spontaneous Coma scale motor response: obeys commands Coma scale verbal response: oriented Coma scale total: 15 Psychiatric Psychiatric exam: Present normal affect and normal mood Skin Skin exam: Present warm, dry, intact and normal color Course Quality Measures none Orders Category Date Time Status XR hip RT w pelvis min 4V Stat Exams 02/11/25 09:30 Completed XR lumbar spine min 4V Stat Exams 02/11/25 09:30 Completed XR thoracic spine 3V Stat Exams 02/11/25 09:30 Completed Ketorolac Inj [Toradol Inj] Med 02/11/25 09:34 Discontinued 30 mg IM X1 ONE Vital Signs Vital signs: Vital Signs Temperature 98.2 F 02/11/25 09:29 Pulse Rate 100 02/11/25 09:29 Respiratory Rate 18 02/11/25 09:29 Blood Pressure 149/87 H 02/11/25 09:29 Pulse Oximetry (%) 96 02/11/25 09:29 Oxygen Delivery Method Room Air 02/11/25 09:29 Back Pain / Injury MDM Narrative MDM Narrative:: 74-year-old male with a history of hypertension, type 2 diabetes, hyperlipidemia presents to the emergency room with a chief complaint of lumbar and thoracic back pain x 3 days. Patient states he had a fall where he tripped and landed on his right side injuring his hip and back Patient is hemodynamically stable and in no apparent distress Physical examination shows the patient ambulating using his walker. Patient states he is having some right hip tenderness and some pain to his lumbar area of his spine and thoracic area of his spine. The patient has tenderness with palpation and states his whole back is hurting. X-rays of his hips show bilateral osteoarthritis. The x-rays of his lumbar spine and thoracic spine shows some degenerative disc disease but no acute fractures or dislocations Patient was discharged and educated to follow-up with primary care provider in the next 24 to 48 hours and return to the emergency room for any evidence of worsening signs or symptoms Patient data External records reviewed:: [facility] previous records Clinical information provided by:: patient Social determinants that could affect healthcare access:: none Patient has the following chronic illnesses:: Hypertension, hyperlipidemia, type 2 diabetes How is presenting disease/condition affected by chronic disease/condition?: u neffected by Evaluation data The following diagnostics were reviewed and interpreted by me:: lab results and radiology exam(s) Lab and/or radiology exams considered but not ordered:: Labs and radiology exams considered and ordered Interpretation Summary: X-ray right hip-FINDINGS: No acute right hip fracture or dislocation Moderate bilateral hip osteoarthritis Bones of the pelvis intact IMPRESSION: Moderate bilateral hip osteoarthritis. Lumbar [id number]: Severe osteopenia. Lumbar stabilization about chronic compressed L2 vertebral body with satisfactory alignment No acute lumbar fracture Mild diffuse lumbar disc narrowing IMPRESSION: Mild diffuse lumbar degenerative disc disease with significant spinal stenosis Thoracic [id number]: Thoracic dextroscoliosis 12 degrees Extensive demineralization of the anterior longitudinal ligament. No acute thoracic fracture Moderate diffuse thoracic degenerative disc disease IMPRESSION: Moderate diffuse thoracic degenerative disc disease Medications / Prescriptions Medications or Prescriptions considered but not ordered:: No medication given Medication administrations:: Medication Administration History Discontinued Medications Ketorolac Tromethamine (Ketorolac Inj 60 Mg/2 Ml Vial) 30 mg IM X1 ONE Stop: 02/11/25 09:35 Last Admin: 02/11/25 09:40 Dose: 30 mg Documented By: OA No medication given Consultations Consultation(s) initiated? (list below): No Diagnosis Differential diagnosis back pain/injury: lumbar radiculopathy, strain of lumbar region and other (Degenerative disc disease) Most likely diagnosis given after review of the tests above:: Degenerative disc disease Admission Indicated Admission indicated?: not indicated Admission Request Was there a request for admission?: No Disposition Plan Disposition Plan: Discharge Discharge Attestation Discharge Attestation: The patient and all family members were given an opportunity to ask questions and understood the discharge instructions. Discharge instructions specifically effects, indications for sooner follow up or return to the emergency department, and the expected course of current diagnosis. Patient condition: Stable Discharge Plan Plan Patient Disposition: HOME (Self Care) Discharge Disposition comment: Stable Prescriptions/Referrals Prescriptions/Med Rec: No Action albuterol sulfate 90 mcg/actuation HFA aerosol inhaler 2 puff IH Q4HR PRN (Reason: Wheezing) amlodipine 5 mg tablet 5 mg PO DAILY losartan-hydrochlorothiazide 100-25 mg tablet 1 tab PO DAILY Patient Comments: TAKE 1 TABLET BY MOUTH EVERY DAY FOR 45 DAYS lovastatin 20 mg tablet 20 mg PO DAILY Patient Comments: TAKE 1 TABLET BY MOUTH EVERY DAY WITH THE EVENING MEAL loratadine 10 mg Tablet 10 mg PO DAILY Myrbetriq 50 mg tablet extended release 24 hr 50 mg PO DAILY metformin 1,000 mg tablet 1,000 mg PO BID Patient Comments: TAKE 1 TABLET BY MOUTH TWICE DAILY WITH MEALS Ozempic 0.25 mg or 0.5 mg (2 mg/3 mL) pen injector 1 mg SUBCUT QWEEK Patient Comments: INJECT 0.5 MG UNDER THE SKIN WEEKLY insulin glargine [Lantus Solostar U-100 Insulin] 100 unit/mL (3 mL) insulin pen 25 unit SUBCUT HS ondansetron 4 mg tablet,disintegrating 4 mg PO Q8H Qty: 14 0RF acetaminophen 500 mg capsule 500 mg PO Q6H PRN (Reason: pain) Qty: 30 0RF Referrals: Helder Kaur MD [Primary Care Provider] - In 1 week Problem List Clinical Impression: Degenerative disc disease, Hip osteoarthritis Patient/Caregiver Discharge Instructions Education Materials: Hip Osteoarthritis, ED Osteoarthritis Additional Instructions: Por favor, consulte con mckeon m?dico de cabecera en las pr?ximas 24 a 48 horas. Se realizaron radiograf?as de columna y cadera que muestran osteoartritis. No se observaron fracturas ni luxaciones agudas. Ante cualquier signo de empeoramiento de los signos o s?ntomas, acuda de inmediato a urgencias. Print Language: Swedish Stand Alone Forms: [facility] Award Info., Patient Portal Info Letter PA/ELECTRON MICROSCOPIST Supervising Physician PA/ELECTRON MICROSCOPIST Supervising Physician: Dr. Carrero
[2025-02-11] MEDS: KETOROLAC INJ 60 MG/2 ML VIAL 30 MG IM (09:40)
== END 2025-02-11 11:27 | disposition home or self-care (01) ==
PROVIDERS: Emergency Provider Nurse Practitioner Family; PCP Family Medicine
DX: M51.34 Other intervertebral disc degeneration, thoracic region (principal); M16.0 Bilateral primary osteoarthritis of hip; M51.360 Other intervertebral disc degeneration, lumbar region with discogenic back pain only
CPT/HCPCS: 72072; 72110; 73502; 73503; 96372; 99284; J1885

== ENCOUNTER 2025-03-13 16:06 | Emergency (ER) | payer MEDICARE, MEDICAID, SELFPAY ==
[2025-03-13] VITALS (8 sets, daily range): BP systolic 147–177; BP diastolic 81–99; PULSE 91–117; RESP 14–22; TEMP 36.9–38.2; O2SAT 93–97; BMI 19.5
--- NOTE | 2025-03-13 16:48 | XR_ITS ---
Examination: PA lateral chest 2 views TECHNIQUE: Upright PA lateral chest 2 views Date and time: DecemberMarch 13, 2025, 1725 hours, comparison January 09, 2024 INDICATIONS: Coughing fever today. FINDINGS: COPD with prominent hyperexpansion Significant pneumonia in both lung bases and lingular segment left upper lobe Normal heart size Intact osseous structures with significant osteopenia IMPRESSION: COPD Significant bibasilar and lingular segment left upper lobe pneumonia
--- NOTE | 2025-03-13 16:48 | EKG_ITS ---
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
--- NOTE | 2025-03-13 16:50 | PD.EDRME ---
Rapid Medical Screening Exam RME Arrival date/time: 03/13/25 16:06 74-year-old male presents to the emergency department today for complaints of generalized weakness and weight loss Chief Complaint: Weakness Time Seen by Provider: 03/13/25 16:33 Vital signs: Vital Signs Temperature 99 F 03/13/25 16:37 Pulse Rate 117 H 03/13/25 16:37 Respiratory Rate 18 03/13/25 16:37 Blood Pressure 151/81 H 03/13/25 16:37 Pulse Oximetry (%) 93 L 03/13/25 16:37 Oxygen Delivery Method Room Air 03/13/25 16:37
[2025-03-13 17:19] LABS: Collection Type, Urine Clean Catch
[2025-03-13 17:23] LABS: Lactate (Lactic Acid) 1.6 mMol/L (0.4-2.0)
[2025-03-13 17:25] LABS: Basophils # (Auto) 0.1 Thou/mm3 (0.0-0.2); Basophils % (Auto) 0 % (0-2.5); Eosinophils # (Auto) 0.0 Thou/mm3 (0.0-0.5); Eosinophils % (Auto) 0 % (0-10); Hematocrit 39.1 % (41.0-53.0); Hemoglobin 13.2 g/dL (13.5-16.0); Immature Granulocytes Auto 0.04 Thou/mm3 (0.00-0.00); Lymphocytes # (Auto) 1.0 Thou/mm3 (1.0-4.8); Lymphocytes % (Auto) 6 % (10-50); Mean Corpuscular HGB Conc 33.8 g/dl (31.0-37.0); Mean Corpuscular Hemoglobin 29.0 pg (25.0-35.0); Mean Corpuscular Volume 86 fL (80-100); Monocytes # (Auto) 0.6 Thou/mm3 (0.0-0.8); Monocytes % (Auto) 4 % (0-12); Neutrophils # (Auto) 14.7 Thou/mm3 (1.8-7.7); Neutrophils % (Auto) 90 % (37-80); Nucleated Red Blood Cell # 0.00 Thou/mm3 (0.00-0.00); Nucleated Red Blood Cell % 0 /100 WBC (0); Platelet Count 348 Thou/mm3 (140-440); RDW Standard Deviation 41.1 fL (35.1-43.9); Red Blood Count 4.55 Miln/mm3 (4.50-5.90); White Blood Count 16.4 Thou/mm3 (3.8-10.6)
[2025-03-13 17:42] LABS: Bilirubin,Urine Negative (Negative); Blood,Urine Negative (Negative); Clarity,Urine Clear (Clear/Hazy); Color,Urine Yellow (Lt Yel-Yel); Glucose, Urine 4+ (Negative); Ketones,Urine 1+ (Negative); Leukocyte Esterase,Urine Negative (Negative); Nitrite,Urine Negative (Negative); PH,Urine 6.0 (5.0-7.0); Protein,Urine 1+ (Neg - Trace); RBC,Urine 3 /hpf (0-3); Specific Gravity,Urine 1.034 (1.001-1.035); Squamous Epithelial Cell,Urine 1 /hpf (0-5); Urobilinogen,Urine Negative mg/dL (0.0-1.0); WBC,Urine 2 /hpf (0-5)
[2025-03-13 17:46] LABS: INR 1.0 (0.9-1.3); Partial Thromboplastin Time 27.6 Seconds (22.0-36.0); Prothrombin Time 11.2 Seconds (9.0-12.2)
[2025-03-13 17:51] LABS: B-Type Natriuretic Peptide < 20 pg/mL (0-100)
[2025-03-13 18:04] LABS: Alanine Aminotransferase < 7 U/L (10-49); Albumin, Serum 4.1 gm/dL (3.4-4.8); Albumin/Globulin Ratio 1.2 (1.2-2.2); Alkaline Phosphatase 208 U/L (46-116); Anion Gap 10 (7-16); Aspartate Amino Transferase < 10 U/L (0-34); BUN/Creatinine Ratio 16 Ratio (12-20); Bilirubin,Total 0.7 mg/dL (0.3-1.2); Blood Urea Nitrogen 11 mg/dL (9-23); Calcium 9.9 mg/dL (8.3-10.6); Calcium (Corrected) 9.9 mg/dL (8.5-10.1); Carbon Dioxide 28.1 mMol/L (20.0-31.0); Chloride 96 mMol/L (98-107); Creatinine (Component) 0.7 mg/dL (0.6-1.3); Estimated Creatinine Clearance 69.8 mL/min (>60); Globulin 3.3 gm/dL (2.3-3.5); Glucose 344 mg/dL (74-106); Lipase 19 U/L (12-53); Magnesium 1.6 mg/dL (1.6-2.6); Osmolality,Calculated 281 (275-295); Potassium 4.2 mMol/L (3.4-5.1); Procalcitonin 0.07 ng/ml (0.0-0.49); Sodium 134 mMol/L (136-145); Total Protein 7.4 gm/dL (5.7-8.2); Troponin I < 0.002 ng/mL (0.0-0.045); eGFR > 60 See Note
--- NOTE | 2025-03-13 20:05 | PD.EDURI ---
Upper Respiratory Inf. RME/HPI General Chief Complaint: Weakness Stated Complaint: WEAKNESS/NO APPETITE Time Seen by Provider: 03/13/25 16:33 Arrival date/time: 03/13/25 16:06 RME / HPI RME / HPI Narrative: 03/13/25 16:06 74-year-old male presents to the emergency department today for complaints of generalized weakness and weight loss See MDM Related Data Home Medications ?Medication ?Instructions ?Recorded ?Confirmed albuterol sulfate 90 mcg/actuation 2 puff inhalation Q4HR PRN Wheezing 02/22/20 12/03/24 aerosol inhaler amlodipine 5 mg tablet 5 mg PO DAILY 12/27/22 12/03/24 loratadine 10 mg tablet 10 mg PO DAILY 12/27/22 12/03/24 losartan 100 1 tab PO DAILY 12/27/22 12/03/24 mg-hydrochlorothiazide 25 mg tablet lovastatin 20 mg tablet 20 mg PO DAILY 12/27/22 12/03/24 metformin 1,000 mg tablet 1,000 mg PO BID 12/27/22 12/03/24 mirabegron 50 mg tablet,extended 50 mg PO DAILY 12/27/22 12/03/24 release 24 hr (Myrbetriq) insulin glargine 100 unit/mL (3 25 unit subcut HS 03/22/23 12/03/24 mL) subcutaneous pen (Lantus Solostar U-100 Insulin) semaglutide 0.25 mg or 0.5 mg (2 1 mg subcut QWEEK 03/22/23 12/03/24 mg/3 mL) subcutaneous pen injector (Ozempic) Previous Rx's ?Medication ?Instructions ?Recorded ondansetron 4 mg disintegrating 4 mg PO Q8H #14 tabs 02/15/23 tablet acetaminophen 500 mg capsule 500 mg PO Q6H PRN pain #30 caps 09/26/24 albuterol sulfate 90 mcg/actuation 2 puff inhalation Q6H PRN 03/13/25 aerosol inhaler shortness of breath or wheezing #8.5 grams azithromycin 500 mg tablet 500 mg PO QDAY 3 days #3 tabs 03/13/25 (Zithromax TRI-LAMAR) cefdinir 300 mg capsule 300 mg PO BID #14 caps 03/13/25 ondansetron 4 mg disintegrating 4 mg PO TID PRN nausea and 03/13/25 tablet vomiting 30 days #10 tabs oseltamivir 75 mg capsule (Tamiflu) 75 mg PO BID 5 days #10 caps 03/13/25 prednisone 50 mg tablet 50 mg PO QDAY #3 tabs 03/13/25 Allergies Allergy/AdvReac Type Severity Reaction Status Date / Time Penicillins Allergy Severe Rash Verified 03/13/25 16:08 Review of Systems Review of Systems Systems Reviewed: All systems reviewed, normal except as documented Past Medical History Past Medical History NEUROLOGIC: Positive Neurological Disorders (VERTIGO) CARDIAC: Positive Cardiac Disorders, Hypercholesterolemia and Hypertension RESPIRATORY: Positive Pneumonia GENITOURINARY: Positive Prostate Cancer and Benign Prostatic Hyperplasia (removed) MUSCULOSKELETAL: Positive Musculoskeletal Disorders and Arthritis ENT: Positive Deafness (hearing aids bilateral) ENDOCRINE: Positive Endocrine Disorders and Diabetes Mellitus Type 2 OTHER HISTORY: Positive Cancer and Prostate Cancer Surgical History SURGICAL: Positive Transurethral Resection and of Back Surgery ED Exam Narrative Physical exam: Refer to [facility] Course Course Course Narrative: CXR is ordered for determining the etiology of shortness of breath. Quality Measures none Orders Category Date Time Status Bedside Blood Glucose NOW Care 03/13/25 20:34 Completed Bedside COVID-19 Antigen Test NOW Care 03/13/25 16:48 Completed Bedside Influenza A&B Antigen Test NOW Care 03/13/25 16:48 Completed COVID-19 Screening Questionnaire NOW Care 03/13/25 21:51 Completed EKG (ED ONLY) *Do not use* NOW Care 03/13/25 16:48 Completed Saline [Insert IV] NOW Care 03/13/25 20:10 Completed EKG (ED Only) Stat Exams 03/13/25 16:48 Draft XR chest 2V Stat Exams 03/13/25 16:48 Completed B-Type Natriuretic Peptide Stat Lab 03/13/25 17:00 Completed Blood Culture (Lab) Stat Lab 03/13/25 17:00 Received CBC Stat Lab 03/13/25 17:00 Completed Comprehensive Metabolic Panel Stat Lab 03/13/25 17:00 Completed Lactic Acid [Lactate (Lactic Acid)] Stat Lab 03/13/25 17:00 Completed Lipase Stat Lab 03/13/25 17:00 Completed Magnesium Stat Lab 03/13/25 17:00 Completed Partial Thromboplastin Time Stat Lab 03/13/25 17:00 Completed Procalcitonin Stat Lab 03/13/25 17:00 Completed Prothrombin Time with INR Stat Lab 03/13/25 17:00 Completed Troponin I Stat Lab 03/13/25 17:00 Completed Urinalysis Stat Lab 03/13/25 17:10 Completed Acetaminophen Tab [Tylenol Tab] Med 03/13/25 20:10 Discontinued 650 mg PO X1 ONE Albuterol/Ipratr Rt Jessy [Duoneb Rt Jessy] Med 03/13/25 20:10 Discontinued 3 ml INH X1 ONE Azithromycin Inj [Zithromax Inj] 500 mg Med 03/13/25 20:10 Discontinued Sodium Chloride 0.9% 250 ml [Ns] 250 ml IV X1 Insulin Regular Med 03/13/25 20:13 Discontinued 10 unit SC X1 ONE Insulin Regular Med 03/13/25 20:36 Discontinued 8 unit SC X1 ONE Ketorolac Inj [Toradol Inj] Med 03/13/25 20:10 Discontinued 15 mg IVP X1 ONE MethylPREDNISolone.* [SoluMEDROL Inj] Med 03/13/25 20:10 Discontinued 125 mg IVP X1 ONE Ondansetron Inj [Zofran Inj] Med 03/13/25 20:10 Discontinued 4 mg IVP X1 ONE Oseltamivir [Tamiflu] Med 03/13/25 20:21 Discontinued 75 mg PO X1 ONE Sodium Chloride 0.9% 1000 ml [Ns] 1,000 ml Med 03/13/25 20:10 Discontinued IV 999 mls/hr cefTRIAXone/D5w 1gm IV premix [Rocephin/D5w 1gm IV Med 03/13/25 20:10 Discontinued premix] 1 gm in 50 ml IV X1 Vital Signs Vital signs: Vital Signs Temperature 99 F 03/13/25 16:37 Pulse Rate 117 H 03/13/25 16:37 Respiratory Rate 18 03/13/25 16:37 Blood Pressure 151/81 H 03/13/25 16:37 Pulse Oximetry (%) 93 L 03/13/25 16:37 Oxygen Delivery Method Room Air 03/13/25 16:37 Upper Respiratory Infection MDM Narrative MDM Narrative:: Scribe Attestation: ILinda am scribing for and in the presence of Dr. Purdy. Provider Notation: Although this document has been carefully reviewed, there may still be some phonetic and other typographical errors.? These errors are purely grammatical due to imperfections in the software program and should not be construed in any way to? compromise the substance of the patient's medical care during this visit. This section includes all my notes and documentations, including HPI, PE, and ED course. Leonides Purdy MD HPI: 74 y/o male with Hx of HTN, Type II DM, and Urinary incontinence c/o weakeness, cough, and loss of appetite x 1 week. Denies fever and vomiting. No other complaints. ROS: All negative except as documented in HPI. Physical Exam: General: Alert and oriented. No acute distress when remaining still. Fever noted. Eyes: Conjunctivae and lids clear. ENT: No nasal congestion. Neck: Supple. Heart: Sinus tachycardia noted. Lungs: No respiratory distress. Good air movement with rales. Abdomen: Soft and nontender. Normal bowel sounds. No distension. No rebound or guarding. Back: No CVA tenderness. Skin: Warm and dry. Neuro: Alert and oriented X 3. I reviewed all diagnostic test results: My interpretation of the EKG is sinus rhythm with no acute ST?T changes. My interpretation of the chest x-ray is infiltrates. Blood tests and urine tests remarkable for WBC 16.4. Influenza A&B positive. At this point, diagnoses include: Influenza and pneumonia. Treatment here included: IV fluid, Toradol, Tylenol, Solu-Medrol, DuoNeb, Tamiflu, Rocephin, and Zithromax. Significant improvement noted. 2116: I discussed the case with our hospitalist. About the presentation and exam and diagnostics and treatments here. And need of further care in the hospital. Recommended outpatient management. Based on my best medical judgment, made decision no further evaluation or treatment indicated at this time. Patient understands and agrees to the discharge instructions customized and printed, see below. Discharge instructions from Dr. Purdy: --No physical exertion for 3 days to help rest your lungs. --No smoking and no exposure to smoking or pets or dust or humidity. --Tamiflu to kill the influenza germs. --Cefdinir and Zithromax for pneumonia. --Prednisone to help decrease inflammation of the lungs. --Tylenol 650 mg alternating with ibuprofen 40 mg every 4 hours today and tomorrow scheduled. Then as needed for fever/pain. --Albuterol 2 puffs every 4-6 hours as needed for cough or shortness or breath.?? ?Increase oral fluid.? We need extra fluid when we are sick.?? Zofran for nausea/vomiting. --See a private doctor next week if not completely better. --Seek immediate medical care with significant worsening or with any concerns. Leonides Purdy MD Patient data External records reviewed:: [facility] previous records (Reviewed prior ED records from 02/11/25. Patient was seen for Degenerative disc disease.) Clinical information provided by:: patient and family (Daughter) Social determinants that could affect healthcare access:: none Patient has the following chronic illnesses:: Hypercholesterolemia, Hypertension, Arthritis, Deafness, Diabetes Mellitus Type 2 How is presenting disease/condition affected by chronic disease/condition?: exacerbated by Evaluation data The following diagnostics were reviewed and interpreted by me:: lab results, radiology exam(s) and EKG tracing(s) Lab and/or radiology exams considered but not ordered:: None Interpretation Summary: I reviewed all diagnostic test results: My interpretation of the EKG is sinus rhythm with no acute ST?T changes. My interpretation of the chest x-ray is infiltrates. Blood tests and urine tests remarkable for WBC 16.4. Influenza A&B positive. Medications / Prescriptions Medications or Prescriptions considered but not ordered:: None Medication administrations:: Medication Administration History Discontinued Medications Acetaminophen (Acetaminophen 325 Mg Tablet) 650 mg PO X1 ONE Stop: 03/13/25 20:11 Last Admin: 03/13/25 20:38 Dose: 650 mg Documented By: BD Albuterol/Ipratropium (Albuterol/Ipratropium (Duoneb) Rt Jessy 3 Ml Nebu) 3 ml INH X1 ONE Stop: 03/13/25 20:11 Last Admin: 03/13/25 21:13 Dose: 3 ml Documented By: SC Sodium Chloride (Ns) 1,000 mls @ 999 mls/hr IV .Q1H1M ONE Stop: 03/13/25 21:10 Last Infusion: 03/13/25 21:24 Dose: Infused Documented By: Admin: 03/13/25 20:39 Dose: 999 mls/hr Documented By: BD Azithromycin 500 mg/ Sodium (Chloride) 250 mls @ 250 mls/hr IV X1 ONE Stop: 03/13/25 21:09 Last Infusion: 03/13/25 22:36 Dose: Infused Documented By: Admin: 03/13/25 21:19 Dose: 250 mls/hr Documented By: BD Ceftriaxone Sodium/Dextrose (Rocephin/D5w 1gm Iv Premix) 1 gm in 50 mls @ 100 mls/hr IV X1 ONE Stop: 03/13/25 20:39 Last Infusion: 03/13/25 21:08 Dose: Infused Documented By: Admin: 03/13/25 20:37 Dose: 100 mls/hr Documented By: BD Insulin Human Regular (Insulin Hum Regular 1 Unit/0.01 Ml (Per Unit)) 10 unit SC X1 ONE Stop: 03/13/25 20:14 Last Admin: 03/13/25 20:40 Dose: Not Given Documented By: BD Non-Admin Reason: Cancelled by Provider Insulin Human Regular (Insulin Hum Regular 1 Unit/0.01 Ml (Per Unit)) 8 unit SC X1 ONE Stop: 03/13/25 20:37 Last Admin: 03/13/25 20:49 Dose: 8 unit Documented By: BD Co-signed By: Ketorolac Tromethamine (Ketorolac Inj 30 Mg/Ml Vial) 15 mg IVP X1 ONE Stop: 03/13/25 20:11 Last Admin: 03/13/25 20:38 Dose: 15 mg Documented By: BD Methylprednisolone Sodium Succinate (Methylprednisolone Sod Succ 62.5 Mg/Ml 2ml Vial) 125 mg IVP X1 ONE Stop: 03/13/25 20:11 Last Admin: 03/13/25 20:39 Dose: 125 mg Documented By: BD Ondansetron HCl (Ondansetron Inj 2 Mg/Ml Inj 2 Ml) 4 mg IVP X1 ONE; Protocol Stop: 03/13/25 20:11 Last Admin: 03/13/25 20:39 Dose: 4 mg Documented By: BD Oseltamivir Phosphate (Oseltamivir 75 Mg Capsule) 75 mg PO X1 ONE Stop: 03/13/25 20:22 Last Admin: 03/13/25 20:40 Dose: 75 mg Documented By: BD Treatment here included: IV fluid, Toradol, Tylenol, Solu-Medrol, DuoNeb, Tamiflu, Rocephin, and Zithromax. Consultations Consultation(s) initiated? (list below): Yes Consultation #1 (Physician, Specialty, Details): I discussed the case with our hospitalist. About the presentation and exam and diagnostics and treatments here. And need of further care in the hospital. Recommended outpatient management. Time: 21:17 Diagnosis Upper Respiratory Differential Diagnosis: upper respiratory infection, viral infection, bronchitis, influenza, pharyngitis and other (Pneumonia) Most likely diagnosis given after review of the tests above:: Influenza A, influenza B, Pneumonia Admission Indicated Admission indicated?: not indicated Explain why admission is indicated or not indicated:: With significant improvement and no condition needing emergent intervention, there was no indication for admission. Admission Request Was there a request for admission?: Yes Admission Attestation Admission request attestation: Discussed case with Hospitalist service regarding admission. Discussed patients ED course, exam findings, labs, and radiology results. The Hospitalist [declined] to accept the patient for admission. Disposition Plan Disposition Plan: Discharge Discharge Attestation Discharge Attestation: The patient and all family members were given an opportunity to ask questions and understood the discharge instructions. Discharge instructions specifically effects, indications for sooner follow up or return to the emergency department, and the expected course of current diagnosis. Patient condition: Stable Discharge Plan Plan Patient Disposition: HOME (Self Care) Prescriptions/Referrals Prescriptions/Med Rec: New oseltamivir [Tamiflu] 75 mg capsule 75 mg PO BID 5 Days Qty: 10 0RF prednisone 50 mg tablet 50 mg PO QDAY Qty: 3 0RF albuterol sulfate 90 mcg/actuation HFA aerosol inhaler 2 puff inhalation Q6H PRN (Reason: shortness of breath or wheezing) Qty: 8.5 0RF ondansetron 4 mg tablet,disintegrating 4 mg PO TID PRN (Reason: nausea and vomiting) 30 Days Qty: 10 0RF cefdinir 300 mg capsule 300 mg PO BID Qty: 14 0RF azithromycin [Zithromax TRI-LAMAR] 500 mg tablet 500 mg PO QDAY 3 Days Qty: 3 0RF No Action albuterol sulfate 90 mcg/actuation HFA aerosol inhaler 2 puff IH Q4HR PRN (Reason: Wheezing) amlodipine 5 mg tablet 5 mg PO DAILY losartan-hydrochlorothiazide 100-25 mg tablet 1 tab PO DAILY Patient Comments: TAKE 1 TABLET BY MOUTH EVERY DAY FOR 45 DAYS lovastatin 20 mg tablet 20 mg PO DAILY Patient Comments: TAKE 1 TABLET BY MOUTH EVERY DAY WITH THE EVENING MEAL loratadine 10 mg Tablet 10 mg PO DAILY Myrbetriq 50 mg tablet extended release 24 hr 50 mg PO DAILY metformin 1,000 mg tablet 1,000 mg PO BID Patient Comments: TAKE 1 TABLET BY MOUTH TWICE DAILY WITH MEALS Ozempic 0.25 mg or 0.5 mg (2 mg/3 mL) pen injector 1 mg SUBCUT QWEEK Patient Comments: INJECT 0.5 MG UNDER THE SKIN WEEKLY insulin glargine [Lantus Solostar U-100 Insulin] 100 unit/mL (3 mL) insulin pen 25 unit SUBCUT HS ondansetron 4 mg tablet,disintegrating 4 mg PO Q8H Qty: 14 0RF acetaminophen 500 mg capsule 500 mg PO Q6H PRN (Reason: pain) Qty: 30 0RF Referrals: Helder Kaur MD [Primary Care Provider] - In 1 week Problem List Clinical Impression: Influenza A, Influenza B, Pneumonia Patient/Caregiver Discharge Instructions Discharge Activity: activity as tolerated Education Materials: ED Influenza (Adult), ED Pneumonia (Adult) Additional Instructions: Discharge instructions from Dr. Purdy: --No physical exertion for 3 days to help rest your lungs. --No smoking and no exposure to smoking or pets or dust or humidity. --Tamiflu to kill the influenza germs. --Cefdinir and Zithromax for pneumonia. --Prednisone to help decrease inflammation of the lungs. --Tylenol 650 mg alternating with ibuprofen 40 mg every 4 hours today and tomorrow scheduled. Then as needed for fever/pain. --Albuterol 2 puffs every 4-6 hours as needed for cough or shortness or breath.?? ?Increase oral fluid.? We need extra fluid when we are sick.?? Zofran for nausea/vomiting. --See a private doctor next week if not completely better. --Seek immediate medical care with significant worsening or with any concerns. Instrucciones de erika del Dr. Purdy: --No realice esfuerzo f?sico po 3 d?as para ayudar a que miah pulmones descansen. --No fume ni se exponga al humo, a mascotas, al polvo ni a la humedad. --Tamiflu para eliminar los g?rmenes de la influenza. --Cefdinir y Zithromax para la neumon?a. --Prednisona para ayudar a disminuir la inflamaci?n pulmonar. --Tylenol 650 mg alternando con ibuprofeno 40 mg cada 4 horas, seg?n lo programado hoy y ma?henrietta. Luego, seg?n sea necesario para la fiebre o el dolor. --Albuterol 2 inhalaciones cada 4-6 horas, seg?n sea necesario para la tos o la dificultad para respirar. --Aumente la ingesta de l?quidos. Necesitamos m?s l?quidos cuando estamos enfermos. --Zofran para las n?useas y los v?mitos. --Consulte con un m?dico privado la pr?xima semana si no mejora por completo. --Busque atenci?n m?dica inmediata si presenta un empeoramiento significativo o si tiene alguna inquietud. Print Language: Polish Stand Alone Forms: [employer] Award Info., Patient Portal Info Letter
[2025-03-13] MEDS: cefTRIAXone/D5w 1gm IV premix 1 GM/50 ML BAG IV (20:37)
[2025-03-13] MEDS: ACETAMINOPHEN 325 MG TABLET 650 MG PO (20:38)
[2025-03-13] MEDS: KETOROLAC INJ 30 MG/ML VIAL 15 MG IVP (20:38)
[2025-03-13] MEDS: ONDANSETRON INJ 2 MG/ML INJ 2 ML 4 MG IVP (20:39)
[2025-03-13] MEDS: SODIUM CHLORIDE 0.9% 1000 ML 1,000 ML 999 ML IV (20:39)
[2025-03-13] MEDS: MethylPREDNISolone SOD SUCC 62.5 MG/ML 2ML VIAL 125 MG IVP (20:39)
[2025-03-13] MEDS: OSELTAMIVIR 75 MG CAPSULE PO (20:40)
[2025-03-13] MEDS: INSULIN HUM REGULAR 1 UNIT/0.01 ML (PER UNIT) 8 UNIT SC (20:49)
[2025-03-13] MEDS: ALBUTEROL/IPRATROPIUM (Duoneb) RT SOL 3 ML NEBU INH (21:13)
[2025-03-13] MEDS: AZITHROMYCIN INJ 500 MG in SODIUM CHLORIDE 0.9% 250 ML 250 ML 250 MG IV (21:19)
--- NOTE | 2025-03-13 22:13 | PD.RESCONSUL ---
HPI Data of Consult Consult date: 03/13/25 Requesting Physician: Dr. Purdy Attending Provider: Dr. Chao Primary Care Provider: Helder Kaur MD Consult Narrative Reason for consult: Hospitalist consulted for admission History of present illness: 74 y/o M with PMHx significant for HTN, diabetes, hyperlipidemia, prostate cancer presents with chief complaint of generalized weakness x 1 week. Per patient and family at bedside patient for the past week has had general weakness/fatigue and decreased physical activity. Patient denies fevers, chills, chest pain, cough, sputum production, shortness of breath, nausea, vomiting, abdominal pain, dysuria. ED COURSE: Labs significant for: WBC 16.4, lactic acid 1.6, Pro-Luis negative, flu A/B+. Endings significant for: Chest x-ray showing bibasilar scarring similar to previous imaging. Patient received Rocephin, 1 L bolus normal saline, steroids, DuoNebs, azithromycin in the ED. Curb 65 score 1. Given patient's benign presentation and symptoms lasting 1 week, recommend discharged with p.o. antibiotics and outpatient follow-up. PMH: Prostate cancer, hypertension, diabetes, hyperlipidemia PSH: Radical prostatectomy SH: Denies alcohol, tobacco, illicit drug use Allergies:?NKDA Medications: Calcium, losartan, metformin, insulin cc:: cc: Review of Systems Review of Systems Systems Reviewed: All systems reviewed, normal except as documented Past Medical History Past Medical History Comments PMH COMMENT: PMH: Prostate cancer, hypertension, diabetes, hyperlipidemia PSH: Radical prostatectomy SH: Denies alcohol, tobacco, illicit drug use Allergies:?NKDA Medications: Calcium, losartan, metformin, insulin Exam Vital Signs Temp Pulse Resp BP Pulse Ox O2 Del Method 98.6 F 91 20 147/82 H 97 Room Air 03/13/25 21:24 03/13/25 21:13 03/13/25 21:13 03/13/25 20:48 03/13/25 21:13 03/13/25 20:48 Narrative Exam PE: Gen: Well-developed and well-nourished. HEENT: NCAT, PERRLA, EOMI, MMM, anicteric conjunctivae. CVS: normal S1 and S2. RRR. No M/R/G. Resp: CTA B/L. No rhonchi, rales, crackles or wheezing. Abd: soft, non-tender, non-distended. BS+ in all 4 quadrants. MSK: Good ROM in BUE & BLE. No edema or rash. Neuro: CN II-XII grossly intact. Strength 5/5 in BUE & BLE. Alert and oriented x3. Psych: appropriate mood and affect. Results Labs 03/13/25 17:00 03/13/25 17:00 Labs: Short CBC 03/13/25 Range/Units 17:00 WBC 16.4 H (3.8-10.6) Thou/mm3 Hgb 13.2 L (13.5-16.0) g/dL Hct 39.1 L (41.0-53.0) % Plt Count 348 (140-440) Thou/mm3 BMP 03/13/25 17:00 Sodium 134 L Potassium 4.2 Chloride 96 L Carbon Dioxide 28.1 BUN 11 Creatinine 0.7 Glucose 344 H Calcium 9.9 Cardiac Enzymes 03/13/25 Range/Units 17:00 Troponin I < 0.002 (0.0-0.045) ng/mL Liver Function 03/13/25 Range/Units 17:00 Total Bilirubin 0.7 (0.3-1.2) mg/dL AST < 10 (0-34) U/L ALT < 7 L (10-49) U/L Alkaline Phosphatase 208 H (46-116) U/L Albumin 4.1 (3.4-4.8) gm/dL Urine 03/13/25 Range/Units 17:10 Urine Color Yellow (Lt Yel-Yel) Urine Clarity Clear (Clear/Hazy) Urine pH 6.0 (5.0-7.0) Ur Specific Mcleod 1.034 (1.001-1.035) Urine Protein 1+ A (Neg - Trace) Urine Glucose (UA) 4+ A (Negative) Quality Measures Quality Measures none Advance care planning discussed with:: patient and child Medications Home Medications and Allergies Home Medications ?Medication ?Instructions ?Recorded ?Confirmed ?Type albuterol sulfate 90 mcg/actuation 2 puff inhalation Q4HR PRN Wheezing 02/22/20 12/03/24 History aerosol inhaler amlodipine 5 mg tablet 5 mg PO DAILY 12/27/22 12/03/24 History loratadine 10 mg tablet 10 mg PO DAILY 12/27/22 12/03/24 History losartan 100 1 tab PO DAILY 12/27/22 12/03/24 History mg-hydrochlorothiazide 25 mg tablet lovastatin 20 mg tablet 20 mg PO DAILY 12/27/22 12/03/24 History metformin 1,000 mg tablet 1,000 mg PO BID 12/27/22 12/03/24 History mirabegron 50 mg tablet,extended 50 mg PO DAILY 12/27/22 12/03/24 History release 24 hr (Myrbetriq) insulin glargine 100 unit/mL (3 25 unit subcut HS 03/22/23 12/03/24 History mL) subcutaneous pen (Lantus Solostar U-100 Insulin) semaglutide 0.25 mg or 0.5 mg (2 1 mg subcut QWEEK 03/22/23 12/03/24 History mg/3 mL) subcutaneous pen injector (Ozempic) Allergies Allergy/AdvReac Type Severity Reaction Status Date / Time Penicillins Allergy Severe Rash Verified 03/13/25 16:08 Visit Medications Discontinued Medications Acetaminophen (Acetaminophen 325 Mg Tablet) 650 mg PO X1 ONE Stop: 03/13/25 20:11 Last Admin: 03/13/25 20:38 Dose: 650 mg Albuterol/Ipratropium (Albuterol/Ipratropium (Duoneb) Rt Jessy 3 Ml Nebu) 3 ml INH X1 ONE Stop: 03/13/25 20:11 Last Admin: 03/13/25 21:13 Dose: 3 ml Sodium Chloride (Ns) 1,000 mls @ 999 mls/hr IV .Q1H1M ONE Stop: 03/13/25 21:10 Last Infusion: 03/13/25 21:24 Dose: Infused Azithromycin 500 mg/ Sodium (Chloride) 250 mls @ 250 mls/hr IV X1 ONE Stop: 03/13/25 21:09 Last Admin: 03/13/25 21:19 Dose: 250 mls/hr Ceftriaxone Sodium/Dextrose (Rocephin/D5w 1gm Iv Premix) 1 gm in 50 mls @ 100 mls/hr IV X1 ONE Stop: 03/13/25 20:39 Last Infusion: 03/13/25 21:08 Dose: Infused Insulin Human Regular (Insulin Hum Regular 1 Unit/0.01 Ml (Per Unit)) 10 unit SC X1 ONE Stop: 03/13/25 20:14 Last Admin: 03/13/25 20:40 Dose: Not Given Insulin Human Regular (Insulin Hum Regular 1 Unit/0.01 Ml (Per Unit)) 8 unit SC X1 ONE Stop: 03/13/25 20:37 Last Admin: 03/13/25 20:49 Dose: 8 unit Ketorolac Tromethamine (Ketorolac Inj 30 Mg/Ml Vial) 15 mg IVP X1 ONE Stop: 03/13/25 20:11 Last Admin: 03/13/25 20:38 Dose: 15 mg Methylprednisolone Sodium Succinate (Methylprednisolone Sod Succ 62.5 Mg/Ml 2ml Vial) 125 mg IVP X1 ONE Stop: 03/13/25 20:11 Last Admin: 03/13/25 20:39 Dose: 125 mg Ondansetron HCl (Ondansetron Inj 2 Mg/Ml Inj 2 Ml) 4 mg IVP X1 ONE; Protocol Stop: 03/13/25 20:11 Last Admin: 03/13/25 20:39 Dose: 4 mg Oseltamivir Phosphate (Oseltamivir 75 Mg Capsule) 75 mg PO X1 ONE Stop: 03/13/25 20:22 Last Admin: 03/13/25 20:40 Dose: 75 mg Assessment & Plan Plan 74 y/o M with PMHx significant for HTN, diabetes, hyperlipidemia, prostate cancer presents with chief complaint of generalized weakness x 1 week, hospitalist team consulted for potential admit. #Influenza Patient presents with chief complaint of generalized weakness x 1 week. Influenza A/B+ in the ED. Leukocytosis 16.4, temperature 100.8, resolved. Lactic acid 1.6, Pro-Luis negative. Patient denies fever, chills, shortness of breath, cough, productive sputum. Lungs clear on auscultation. Chest x-ray showed bibasilar scarring seen on previous imaging. Curb 65 score 1 point. - Recommend discharge with p.o. antibiotics and outpatient follow-up - Patient out of window for benefit from Tamiflu #HTN #T2DM #Prostate cancer s/p radical prostatectomy Patient history as stated. - Continue outpatient management Plan of care discussed with attending Dr. Jeremie Camarillo MD PGY?2 Attending Provider Attestation/Addendum I have examined the patient, reviewed labs and imaging findings, discussed the case with the resident(s), and reviewed entered orders. I agree with the plan of care as outlined in this note, with these additional summaries/recommendations: patient and daughter seen at bedside. Patient diagnosed with influenza and has appropriate O2 saturation on room air. Patient became symptomatic 5 days prior and out of the window for antiviral therapy. Discussed supportive care. Patient also suspected of having superimposed bacterial pneumonia and recommend discharge with oral antibiotic course. Patient safe for discharge home and given strict return precautions. Dr. Jeremie MD
== END 2025-03-13 22:37 | disposition home or self-care (01) ==
PROVIDERS: Nurse Practitioner Primary Care; Emergency Provider Emergency Medicine; PCP Family Medicine
DX: J10.00 Influenza due to other identified influenza virus with unspecified type of pneumonia (principal); E78.00 Pure hypercholesterolemia, unspecified; I10 Essential (primary) hypertension; E11.9 Type 2 diabetes mellitus without complications; M19.90 Unspecified osteoarthritis, unspecified site; C61 Malignant neoplasm of prostate; Z90.79 Acquired absence of other genital organ(s); Z79.84 Long term (current) use of oral hypoglycemic drugs
CPT/HCPCS: 36415; 71046; 80053; 81001; 83605; 83690; 83735; 83880; 84145; 84484; 85025; 85610; 85730; 87040; 87400; 87811; 93005; 94640; 96365; 96366; 96375; 99283; A9270; J0456; J0696; J1815; J1885; J2405; J2919; J7030; J7050

== ENCOUNTER → 2025-03-20 | Outpatient (CLI) | payer MEDICARE, MEDICAID, SELFPAY ==
[2025-03-20 09:49] LABS: Basophils # (Auto) 0.0 Thou/mm3 (0.0-0.2); Basophils % (Auto) 1 % (0-2.5); Eosinophils # (Auto) 0.1 Thou/mm3 (0.0-0.5); Eosinophils % (Auto) 2 % (0-10); Hematocrit 40.5 % (41.0-53.0); Hemoglobin 13.4 g/dL (13.5-16.0); Immature Granulocytes Auto 0.03 Thou/mm3 (0.00-0.00); Lymphocytes # (Auto) 1.4 Thou/mm3 (1.0-4.8); Lymphocytes % (Auto) 19 % (10-50); Mean Corpuscular HGB Conc 33.1 g/dl (31.0-37.0); Mean Corpuscular Hemoglobin 28.6 pg (25.0-35.0); Mean Corpuscular Volume 86 fL (80-100); Monocytes # (Auto) 0.4 Thou/mm3 (0.0-0.8); Monocytes % (Auto) 5 % (0-12); Neutrophils # (Auto) 5.5 Thou/mm3 (1.8-7.7); Neutrophils % (Auto) 74 % (37-80); Nucleated Red Blood Cell # 0.00 Thou/mm3 (0.00-0.00); Nucleated Red Blood Cell % 0 /100 WBC (0); Platelet Count 419 Thou/mm3 (140-440); RDW Standard Deviation 41.2 fL (35.1-43.9); Red Blood Count 4.69 Miln/mm3 (4.50-5.90); White Blood Count 7.4 Thou/mm3 (3.8-10.6)
[2025-03-20 10:10] LABS: Prostate Specific Antigen 0.42 ng/mL (0-4.00)
[2025-03-20 10:15] LABS: Alanine Aminotransferase < 7 U/L (10-49); Albumin, Serum 3.6 gm/dL (3.4-4.8); Albumin/Globulin Ratio 1.3 (1.2-2.2); Alkaline Phosphatase 174 U/L (46-116); Anion Gap 8 (7-16); Aspartate Amino Transferase < 8 U/L (0-34); BUN/Creatinine Ratio 11 Ratio (12-20); Bilirubin,Total 0.6 mg/dL (0.3-1.2); Blood Urea Nitrogen 9 mg/dL (9-23); Calcium 9.5 mg/dL (8.3-10.6); Calcium (Corrected) 9.8 mg/dL (8.5-10.1); Carbon Dioxide 27.6 mMol/L (20.0-31.0); Chloride 98 mMol/L (98-107); Creatinine (Component) 0.8 mg/dL (0.6-1.3); Globulin 2.8 gm/dL (2.3-3.5); Osmolality,Calculated 288 (275-295); Potassium 4.5 mMol/L (3.4-5.1); Sodium 134 mMol/L (136-145); Total Protein 6.4 gm/dL (5.7-8.2); eGFR > 60 See Note
[2025-03-20 10:18] LABS: Glucose 491 mg/dL (74-106)
== END | disposition home or self-care (01) ==
LOC: SCTO 09:06
PROVIDERS: PCP Family Medicine; Referring Provider Urology; Visit Provider Internal Medicine Hematology & Oncology
DX: C61 Malignant neoplasm of prostate (principal); R97.20 Elevated prostate specific antigen [PSA]
CPT/HCPCS: 36415; 80053; 84153; 85025

== ENCOUNTER → 2025-03-26 | Outpatient (BNVA) | payer MEDICARE, MEDICAID, SELFPAY | END | disposition home or self-care (01) | PROVIDERS: PCP Family Medicine; Referring Provider Family Medicine; Visit Provider Urology | DX: C61 Malignant neoplasm of prostate (principal); R39.15 Urgency of urination; E11.9 Type 2 diabetes mellitus without complications; I10 Essential (primary) hypertension; Z87.01 Personal history of pneumonia (recurrent); B02.9 Zoster without complications; E78.00 Pure hypercholesterolemia, unspecified | CPT/HCPCS: 81003; 99212; G0463 ==

== ENCOUNTER 2025-03-27 10:34 | Outpatient (RCR) | payer MEDICARE, MEDICAID, SELFPAY ==
--- NOTE | 2025-03-27 11:04 | CTCFLWUP_ITS ---
Patient: CHETAN NOEL V. : 1950 Page 4 of 5 FOLLOW UP NOTE DATE OF SERVICE: 03/27/2025 NAME: CHETAN NOEL V. ACCOUNT: [id number] : 1950 AGE: 74 INTERVAL HISTORY: Patient was admitted to the hospital. He was treated for influenza and zoster . ONCOLOGY HISTORY:?[facility] Oncology Hx? 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 Mr. Noel was treated with robotic radical prostatectomy. 1. Adenocarcinoma of the prostate gland, acinar type. 2. Histological grade group and Bhupendra score grade group is 4. [place] score is 4+4=8. Percentage of the pattern 4 is 80%. Percentage of the pattern 5 is 0. Intraductal carcinoma, not identified. 3. Tumor quantification 25%. 4. Extraprostatic extension present, nonfocal. 5. Location of the extraprostatic extension, right anterior, left lateral, left posterior. 6. Urinary bladder neck invasion present. 7. Seminal vesicle invasion present, left. 8. Treatment effect, no known presurgical therapy. 9. Prostate summary, lymphovascular invasion present. 10. Perineural invasion present. 11. Margin involved by invasive carcinoma limited less than 3 mm. Location of positive margin, right posterior margin. Positivity in the area of extraprostatic extension present, [place] pattern of positive margin is 4 lymph nodes. Number of lymph nodes involved 2. Site pelvic, periprostatic. Size of the metastatic deposit is 0.4 cm. Pathological stage is pT3b N1 Mx. Additional finding, carcinoma involves the left vas. I did his PSA on 05/30/2020, is 12.35. He is continent of urine. 07/24/2020: Bone scan done 07/16/2020 - 09/10/2020: Due to high risk nature of his prostate cancer Mr. Noel was treated with radiation along with Lupron injections. Mr. Noel received 6840 cGy of radiation therapy prostate bed. 08/04/2020?02/03/2022: Mr. Noel was treated with leuprolide. PSA trend: 06/2021: Less than 0.10. 03/11/2021: Less than 0.10. 08/12/2022: Less than 0.10. 02/21/2023: 4.69. 03/14/2023: PSA 6.14. 03/10/2023: Xtandi prescribed 03/17/2023: Patient received Lupron 22.5 mg IM 05/17/2023: 3.45. 03/01/2023: CT scan of the abdomen and pelvis with IV contrast 03/03/2023:Bone scan- 03/07/2023: X-rays of the lumbar spine no evidence of metastatic disease 03/07/2023: X-rays of the thoracic spine were negative for osteoblastic metastatic disease. 06/14/2023: PSA less than 0.10 07/11/2023: Xtandi discontinued due to extreme weakness and fatigue. 08/17/2023: PSA less than 0.00. 09/13/2023: PSA less than 0.10. 12/12/2023: PSA is less than 0.10. OTHER MEDICAL HISTORY/CONDITIONS: Prostate cancer HTN Diabetes Asthma Rheumatoid arthritis Hyperlipidemia Robotic Radiacl Prostatectomy - 07/31/2019 [facility] Lumbar rodding - 2016 FAMILY HISTORY: Patient?denies?family?cancer?history. 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 Tobacco?Use:?Denies ETOH?Use:?Denies Drug?Note:?Denies Social?History?Note:?Lives?with?dtr MEDICATIONS: 1. Calcium 600 + D(3) - 600 mg-10 mcg (400 unit) 1 tab take 1 tab po twice a day 2. losartan - 100 mg Daily 3. metformin - 1,000 mg Twice a Day 4. NovoLOG Mix 70-30 U-100 Insuln - 100 unit/mL (70-30) As directed?Palabra Meds? Medications Last Reconciled by Bri Osborn MA on 03/27/2025 ALLERGIES: PENICILLAMINE REVIEW OF SYSTEMS: A complete 14-point review of systems was performed and is negative except as noted in interval history. PHYSICAL EXAMINATION:?CloneBlock PE? VITAL SIGNS: PAIN: 0 - No pain ECOG Performance Status: 0 - Asymptomatic and fully active GENERAL APPEARANCE: Appears well, in no apparent distress, appropriately interactive. HEENT: Normocephalic, no temporal wasting, normal conjunctiva, no scleral icterus, normal hearing, lips without lesions, neck normal range of motion. CARDIOVASCULAR: Not assessed. PULMONARY: Normal respiratory effort, no respiratory distress or use of accessory muscles, speaking in full sentences, no tachypnea. EXTREMITIES: No pedal edema or cyanosis. SKIN: Normal skin appearance. NEUROLOGIC: Alert and oriented x4. PSHYCHIATRIC: Appropriate affect, mood normal, behavior normal, intact thought and speech. LABORATORY DATA: I have personally reviewed and interpreted each of the patient?s relevant lab tests, abnormal findings are below: Date 03/13/25 03/20/25 ??WHITE?BLOOD?COUNT?(Thou/mm3) 16.4?H 7.4 ??RED?BLOOD?COUNT?(Miln/mm3) 4.55 4.69 ??HEMOGLOBIN?(gm/dl) 13.2?L 13.4?L ??HEMATOCRIT?(%) 39.1?L 40.5?L ??PLATELET?COUNT?(Thou/mm3) 348 419 ??NEUTROPHILS?%,?AUTO?(%) 90?H 74 ??LYMPH?%,?AUTO?(%) 6?L 19 ??NEUTROPHILS,?AUTO?(Thou/mm3) 14.7?H 5.5 ??GLUCOSE,RANDOM?(mg/dL) 344?H 491?HH ??BLOOD?UREA?NITROGEN?(mg/dL) 11 9 ??CREATININE?(mg/dL) 0.70 0.80 ??SODIUM?(mmol/L) 134?L 134?L ??POTASSIUM?(mmol/L) 4.2 4.5 ??CHLORIDE?(mmol/L) 96?L 98 ??CrCl?(CandG)?(ml/min) 79.59 69.65 ??AST/SGOT?(Unit/L) <?10 <?8 ??ALT/SGPT?(Unit/L) <?7?L <?7?L ??ALKALINE?PHOSPHATASE?(Unit/L) 208?H 174?H ??BILIRUBIN,?TOTAL?(mg/dL) 0.7 0.6 ??PROTEIN?TOTAL?(gm/dl) 7.4 6.4 ??ALBUMIN,?SERUM?(gm/dl) 4.1 3.6 ??GLOBULIN?(gm/dl) 3.3 2.8 ??ALBUMIN/GLOBULIN?RATIO 1.2 1.3 ??CALCIUM,?SERUM?(mg/dL) 9.9 9.5 ??CALCIUM?SERUM?(CORRECTED)?(mg/dL) 9.9 9.8 ASSESSMENT/PLAN:?Shantanu Reyez Assessment/Plan? 1. 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 Has reasonably good energy levels. Ambulating with the help of a cane. Previously he was unable to tolerate Xtandi which was discontinued. PSA less than 0.10. CT scan of the abdomen and pelvis with IV contrast negative for metastatic disease. Bone scan (03/03/2023) is also negative for metastatic disease.. Advised to take calcium and vitamin D3 Patient's weight loss may or may not be related to prostate cancer as PSA less than 0.4. Will do PET CT scan to evaluate for underlying malignancy Uncontrolled diabetes Blood sugars persistently more than 500 Cont to follow up with endocrinology Failure to thrive Patient is persistently losing weight Will wait for the PET CT scan results to see if patient has another malignancy Weight loss can also be part of the uncontrolled diabetes RTC after the imaging and endocrine follow-up Osteoporosis Osteoporosis Advised to take calcium and vitamin D3 daily Start on Zometa once dental cleared ORDERS: Order # Description [id number] Comprehensive Metabolic Panel - 12 + PSA + CBC with Auto Diff + MD Follow Up 3 Months RETURN TO CLINIC: I reviewed the diagnosis, prognosis, and recommended treatment/procedure options with the patient (and/or their legal software support representative), including the potential benefits, risks, side effects and alternative therapies. We also discussed the option of no treatment and the possibility of clinical trial participation, if applicable. All questions were addressed, and they demonstrated understanding. They provided informed consent to proceed with the proposed plan of care. BILLING AND COMPLIANCE: I reviewed external records from providers outside my specialty as summarized above. I spent a total of 50 minutes on this patient?s care on the day of their visit excluding time spent related to any billed procedures. This time includes time spent with the patient as well as time spent documenting in the medical record, reviewing patients records and tests, obtaining history, placing orders, communicating with other healthcare professionals, counseling the patient, family or caregiver, and/or care coordination for the diagnoses above. Electronically Signed by: Edison Reyez MD T: 11:02 AM CC: PCP: Helder Kaur Referring: Helder Kaur This document was completed utilizing speech recognition software. Grammatical errors, random word insertions, pronoun errors, and incomplete sentences are an occasional consequence of this system due to software limitations, ambient noise, and hardware issues. Any formal questions or concerns about the content, text or information contained within the body of this dictation should be directly addressed to the provider for clarification.
== END 2025-04-23 23:59 | disposition home or self-care (01) ==
LOC: SCTC 10:34
PROVIDERS: PCP Internal Medicine; Referring Provider Family Medicine; Visit Provider Internal Medicine Hematology & Oncology
DX: C61 Malignant neoplasm of prostate (principal); Z90.79 Acquired absence of other genital organ(s); Z19.1 Hormone sensitive malignancy status; E11.65 Type 2 diabetes mellitus with hyperglycemia; Z79.4 Long term (current) use of insulin; Z79.84 Long term (current) use of oral hypoglycemic drugs; R62.7 Adult failure to thrive; Z68.1 Body mass index [BMI] 19.9 or less, adult; M81.0 Age-related osteoporosis without current pathological fracture
CPT/HCPCS: 99212; G0463

== ENCOUNTER → 2025-04-30 | Outpatient (CLI) | payer MEDICARE, MEDICAID, SELFPAY ==
--- NOTE | 2025-04-30 08:45 | XR_ITS ---
EXAMINATION: PET/CT FUSION SKULL TO THIGH EXAM DATE AND TIME: April 30, 2025, 0937 hours, comparison CT brain scan September 26, 2024, nuclear medicine bone scan January 27, 2024, CT abdomen pelvis 2022 INDICATIONS: Diagnosis prostate cancer, staging CTDI:vol (mGy) 3.61 DLP: (mGycm) 330 PROCEDURE: 17.4 mCi FDG was administered intravenously To allow for distribution and uptake of radiotracer, the patient was allowed to rest quietly in a shielded room. Imaging was performed on an integrated 16-slice PET/CT scanner, with scanning from the skull base to the mid thigh. Serum blood glucose at the time of the injection was measured 163 mg/dL. CT scanning was performed without oral or intravenous contrast material. FINDINGS: Head and Neck: There is no sumit hypermetabolism in the neck. The visualized portions of the brain are normal in appearance on CT. Chest: There is no sumit hypermetabolism in the chest. There are no pulmonary nodules. Abdomen and Pelvis: There is no sumit hypermetabolism in retroperitoneal or pelvic chains. The spleen is normal in size and FDG avidity. Musculoskeletal: Marrow uptake is within normal range. Specifically no hypermetabolic lumbar or thoracic increased activity There are plain film findings of subacute to chronic comminuted fractures T10 which are not seen on the CT abdomen pelvis June 15, 2023 IMPRESSION: No findings diagnostic for metastatic disease Recommend CT scan thoracic spine without contrast follow-up to assess the T10 subacute to chronic comminuted fractures
== END | disposition home or self-care (01) ==
PROVIDERS: Referring Provider Internal Medicine Hematology & Oncology; Visit Provider Internal Medicine Hematology & Oncology
DX: C61 Malignant neoplasm of prostate (principal)
CPT/HCPCS: 78815; A9552

== ENCOUNTER → 2025-06-24 | Outpatient (CLI) | payer MEDICARE, MEDICAID, SELFPAY ==
[2025-06-24 12:17] LABS: Basophils # (Auto) 0.0 Thou/mm3 (0.0-0.2); Basophils % (Auto) 0 % (0-2.5); Eosinophils # (Auto) 0.1 Thou/mm3 (0.0-0.5); Eosinophils % (Auto) 1 % (0-10); Hematocrit 38.9 % (41.0-53.0); Hemoglobin 12.9 g/dL (13.5-16.0); Immature Granulocytes Auto 0.02 Thou/mm3 (0.00-0.00); Lymphocytes # (Auto) 1.2 Thou/mm3 (1.0-4.8); Lymphocytes % (Auto) 17 % (10-50); Mean Corpuscular HGB Conc 33.2 g/dl (31.0-37.0); Mean Corpuscular Hemoglobin 28.5 pg (25.0-35.0); Mean Corpuscular Volume 86 fL (80-100); Monocytes # (Auto) 0.6 Thou/mm3 (0.0-0.8); Monocytes % (Auto) 8 % (0-12); Neutrophils # (Auto) 5.3 Thou/mm3 (1.8-7.7); Neutrophils % (Auto) 74 % (37-80); Nucleated Red Blood Cell # 0.00 Thou/mm3 (0.00-0.00); Nucleated Red Blood Cell % 0 /100 WBC (0); Platelet Count 424 Thou/mm3 (140-440); RDW Standard Deviation 40.2 fL (35.1-43.9); Red Blood Count 4.53 Miln/mm3 (4.50-5.90); White Blood Count 7.2 Thou/mm3 (3.8-10.6)
[2025-06-24 12:28] LABS: Alanine Aminotransferase < 7 U/L (10-49); Albumin, Serum 4.2 gm/dL (3.4-4.8); Albumin/Globulin Ratio 1.3 (1.2-2.2); Alkaline Phosphatase 189 U/L (46-116); Anion Gap 10 (7-16); Aspartate Amino Transferase < 10 U/L (0-34); BUN/Creatinine Ratio 23 Ratio (12-20); Bilirubin,Total 0.4 mg/dL (0.3-1.2); Blood Urea Nitrogen 14 mg/dL (9-23); Calcium 9.1 mg/dL (8.3-10.6); Calcium (Corrected) 9.1 mg/dL (8.5-10.1); Carbon Dioxide 26.8 mMol/L (20.0-31.0); Chloride 99 mMol/L (98-107); Creatinine (Component) 0.6 mg/dL (0.6-1.3); Globulin 3.2 gm/dL (2.3-3.5); Glucose 361 mg/dL (74-106); Osmolality,Calculated 287 (275-295); Potassium 4.1 mMol/L (3.4-5.1); Sodium 136 mMol/L (136-145); Total Protein 7.4 gm/dL (5.7-8.2); eGFR > 60 See Note
[2025-06-24 12:29] LABS: Prostate Specific Antigen 3.92 ng/mL (0-4.00)
== END | disposition home or self-care (01) ==
LOC: SCTO 10:49
PROVIDERS: PCP Family Medicine; Referring Provider Internal Medicine Hematology & Oncology; Visit Provider Internal Medicine Hematology & Oncology
DX: C61 Malignant neoplasm of prostate (principal)
CPT/HCPCS: 36415; 80053; 84153; 85025

== ENCOUNTER 2025-06-26 13:08 | Outpatient (RCR) | payer MEDICARE, MEDICAID, SELFPAY ==
--- NOTE | 2025-06-26 14:14 | CTCFLWUP_ITS ---
Patient: CHETAN NOEL V. : 1950 Page 2 of 3 FOLLOW UP NOTE DATE OF SERVICE: 06/26/2025 NAME: CHETAN NOEL V. ACCOUNT: [id number] : 1950 AGE: 74 INTERVAL HISTORY: Doing well. Pet scan is good. ONCOLOGY HISTORY:?[facility]one[facility] Oncology Hx? 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 Mr. Noel was treated with robotic radical prostatectomy. 1. Adenocarcinoma of the prostate gland, acinar type. 2. Histological grade group and Bhupendra score grade group is 4. [place] score is 4+4=8. Percentage of the pattern 4 is 80%. Percentage of the pattern 5 is 0. Intraductal carcinoma, not identified. 3. Tumor quantification 25%. 4. Extraprostatic extension present, nonfocal. 5. Location of the extraprostatic extension, right anterior, left lateral, left posterior. 6. Urinary bladder neck invasion present. 7. Seminal vesicle invasion present, left. 8. Treatment effect, no known presurgical therapy. 9. Prostate summary, lymphovascular invasion present. 10. Perineural invasion present. 11. Margin involved by invasive carcinoma limited less than 3 mm. Location of positive margin, right posterior margin. Positivity in the area of extraprostatic extension present, [place] pattern of positive margin is 4 lymph nodes. Number of lymph nodes involved 2. Site pelvic, periprostatic. Size of the metastatic deposit is 0.4 cm. Pathological stage is pT3b N1 Mx. Additional finding, carcinoma involves the left vas. I did his PSA on 05/30/2020, is 12.35. He is continent of urine. 07/24/2020: Bone scan done 07/16/2020 - 09/10/2020: Due to high risk nature of his prostate cancer Mr. Noel was treated with radiation along with Lupron injections. Mr. Noel received 6840 cGy of radiation therapy prostate bed. 08/04/2020?02/03/2022: Mr. Noel was treated with leuprolide. PSA trend: 06/2021: Less than 0.10. 03/11/2021: Less than 0.10. 08/12/2022: Less than 0.10. 02/21/2023: 4.69. 03/14/2023: PSA 6.14. 03/10/2023: Xtandi prescribed 03/17/2023: Patient received Lupron 22.5 mg IM 05/17/2023: 3.45. 03/01/2023: CT scan of the abdomen and pelvis with IV contrast 03/03/2023:Bone scan- 03/07/2023: X-rays of the lumbar spine no evidence of metastatic disease 03/07/2023: X-rays of the thoracic spine were negative for osteoblastic metastatic disease. 06/14/2023: PSA less than 0.10 07/11/2023: Xtandi discontinued due to extreme weakness and fatigue. 08/17/2023: PSA less than 0.00. 09/13/2023: PSA less than 0.10. 12/12/2023: PSA is less than 0.10. OTHER MEDICAL HISTORY/CONDITIONS: Prostate cancer HTN Diabetes Asthma Rheumatoid arthritis Hyperlipidemia Robotic Radiacl Prostatectomy - 07/31/2019 [facility] Lumbar rodding - 2016 FAMILY HISTORY: Patient?denies?family?cancer?history. 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 Tobacco?Use:?Denies ETOH?Use:?Denies Drug?Note:?Denies Social?History?Note:?Lives?with?dtr MEDICATIONS: 1. Basaglar KwikPen U-100 Insulin - 100 unit/mL (3 mL) 23 Units 2. Calcium 600 + D(3) - 600 mg-10 mcg (400 unit) 1 tab take 1 tab po twice a day 3. HumaLOG Pen - 100 unit/mL As directed 4. losartan - 100 mg Daily 5. metformin - 1,000 mg Twice a Day?Palabra Meds? Medications Last Reconciled by Bri Osborn MA on 06/26/2025 ALLERGIES: PENICILLAMINE REVIEW OF SYSTEMS: A complete 14-point review of systems was performed and is negative except as noted in interval history. PHYSICAL EXAMINATION:?CloneBlock PE? VITAL SIGNS: Temperature?98, B/P?136/80, Oxygen?Saturation?99% Weight?123?lbs PAIN: 3 - Between mild and moderate pain ECOG Performance Status: 0 - Asymptomatic and fully active GENERAL APPEARANCE: Appears well, in no apparent distress, appropriately interactive. HEENT: Normocephalic, no temporal wasting, normal conjunctiva, no scleral icterus, normal hearing, lips without lesions, neck normal range of motion. CARDIOVASCULAR: Not assessed. PULMONARY: Normal respiratory effort, no respiratory distress or use of accessory muscles, speaking in full sentences, no tachypnea. EXTREMITIES: No pedal edema or cyanosis. SKIN: Normal skin appearance. NEUROLOGIC: Alert and oriented x4. PSHYCHIATRIC: Appropriate affect, mood normal, behavior normal, intact thought and speech. LABORATORY DATA: I have personally reviewed and interpreted each of the patient?s relevant lab tests, abnormal findings are below: Date 03/20/25 06/24/25 ??WHITE?BLOOD?COUNT?(Thou/mm3) 7.4 7.2 ??RED?BLOOD?COUNT?(Miln/mm3) 4.69 4.53 ??HEMOGLOBIN?(gm/dl) 13.4?L 12.9?L ??HEMATOCRIT?(%) 40.5?L 38.9?L ??PLATELET?COUNT?(Thou/mm3) 419 424 ??NEUTROPHILS?%,?AUTO?(%) 74 74 ??LYMPH?%,?AUTO?(%) 19 17 ??NEUTROPHILS,?AUTO?(Thou/mm3) 5.5 5.3 ??GLUCOSE,RANDOM?(mg/dL) 491?HH 361?H ??BLOOD?UREA?NITROGEN?(mg/dL) 9 14 ??CREATININE?(mg/dL) 0.80 0.60 ??SODIUM?(mmol/L) 134?L 136 ??POTASSIUM?(mmol/L) 4.5 4.1 ??CHLORIDE?(mmol/L) 98 99 ??CrCl?(CandG)?(ml/min) 69.65 84.54 ??AST/SGOT?(Unit/L) <?8 <?10 ??ALT/SGPT?(Unit/L) <?7?L <?7?L ??ALKALINE?PHOSPHATASE?(Unit/L) 174?H 189?H ??BILIRUBIN,?TOTAL?(mg/dL) 0.6 0.4 ??PROTEIN?TOTAL?(gm/dl) 6.4 7.4 ??ALBUMIN,?SERUM?(gm/dl) 3.6 4.2 ??GLOBULIN?(gm/dl) 2.8 3.2 ??ALBUMIN/GLOBULIN?RATIO 1.3 1.3 ??CALCIUM,?SERUM?(mg/dL) 9.5 9.1 ??CALCIUM?SERUM?(CORRECTED)?(mg/dL) 9.8 9.1 ASSESSMENT/PLAN:?Shantanu Reyez Assessment/Plan? 1. 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 Has reasonably good energy levels. Ambulating with the help of a cane. Previously he was unable to tolerate Xtandi which was discontinued. PSA less than 0.10. CT scan of the abdomen and pelvis with IV contrast negative for metastatic disease. Bone scan (03/03/2023) is also negative for metastatic disease.. Advised to take calcium and vitamin D3 Stopped Lupron as have had for 4 years as adjuvant Start Zometa every 6 month s Uncontrolled diabetes Blood sugars persistently more than 500 Cont to follow up with endocrinology Failure to thrive Patient is persistently losing weight Will wait for the PET CT scan results to see if patient has another malignancy Weight loss can also be part of the uncontrolled diabetes RTC after the imaging and endocrine follow-up Osteoporosis Osteoporosis Advised to take calcium and vitamin D3 daily Start on Zometa once dental cleared ORDERS: Order # Description [id number] Infusion 1 Hour [id number] Infusion 1 Hour [id number] Infusion 1 Hour [id number] Infusion 1 Hour [id number] Infusion 1 Hour [id number] Infusion 1 Hour RETURN TO CLINIC: I reviewed the diagnosis, prognosis, and recommended treatment/procedure options with the patient (and/or their legal corporate sales representative), including the potential benefits, risks, side effects and alternative therapies. We also discussed the option of no treatment and the possibility of clinical trial participation, if applicable. All questions were addressed, and they demonstrated understanding. They provided informed consent to proceed with the proposed plan of care. BILLING AND COMPLIANCE: I reviewed external records from providers outside my specialty as summarized above. I spent a total of 50 minutes on this patient?s care on the day of their visit excluding time spent related to any billed procedures. This time includes time spent with the patient as well as time spent documenting in the medical record, reviewing patients records and tests, obtaining history, placing orders, communicating with other healthcare professionals, counseling the patient, family or caregiver, and/or care coordination for the diagnoses above. Electronically Signed by: Edison Reyez MD T: 2:12 PM CC: PCP: Helder Kaur Referring: Helder Kaur This document was completed utilizing speech recognition software. Grammatical errors, random word insertions, pronoun errors, and incomplete sentences are an occasional consequence of this system due to software limitations, ambient noise, and hardware issues. Any formal questions or concerns about the content, text or information contained within the body of this dictation should be directly addressed to the provider for clarification.
== END 2025-07-24 23:59 | disposition home or self-care (01) ==
LOC: SCTC 13:08
PROVIDERS: PCP Internal Medicine; Referring Provider Family Medicine; Visit Provider Internal Medicine Hematology & Oncology
DX: C61 Malignant neoplasm of prostate (principal); Z19.1 Hormone sensitive malignancy status; E11.65 Type 2 diabetes mellitus with hyperglycemia; M81.0 Age-related osteoporosis without current pathological fracture; R62.7 Adult failure to thrive; Z68.1 Body mass index [BMI] 19.9 or less, adult; Z79.4 Long term (current) use of insulin; Z79.84 Long term (current) use of oral hypoglycemic drugs
CPT/HCPCS: 99212; G0463